=== PATIENT | female | born 1955 | race Asian ===

== ENCOUNTER 2024-08-01 10:25 | Outpatient (AMB) | payer MEDICARE, MEDICAID, SELFPAY ==
--- NOTE | 2024-08-01 10:30 | A.OFFVIS_ITS ---
Vital Signs 08/01/24 10:33 Height 5 ft 1.65 in Weight 153 lb 10.595 oz BMI 28.4 BP 130/90 H Blood Pressure Location Rt brachial Position Sitting Pulse 68 Pulse Source Pulse Oximeter Pulse Oximetry (%) 99 Oxygen Delivery Method Room Air Intake Visit Reasons: Arthalgia Intake Note: Patient presents today for Primary localized osteoarthritis of knees, bilateral. Allergies No Known Allergies Allergy (Verified 07/27/24 15:22) HPI HPI Arthalgia: Details: She received [facility] [place] [address] Parks. She received at least 3 months benefit with cortisone injection. Left knee pain is now worse than right knee pain. A month ago she developed joint pain and swelling involving her hands, wrists, feet extending to her knees. She saw a physician in [place] who started patient on methotrexate 7.5 mg once weekly, chloroquine and betamethasone 0.5 mg twice a day. She had told the physician that she was unable to take NSAIDs due to prior history of JOHNNA on diclofenac 50 mg twice a day. After treatment her pain and swelling has resolved. No reoccurrence of joint swelling. [facility] Medical History (Updated 08/01/24 @ 21:34 by Jose Miguel Alberto MD) Systemic hypertension due to high intracranial pressure Hypertension Primary localized osteoarthritis of knees, bilateral Cervicalgia Carpal tunnel syndrome Arthralgia of shoulder region Arthralgia of hand Surgical History History of right cataract surgery Family History Father No problems noted. Review of Systems Const All systems reviewed & are unremarkable except as noted in HPI and below Physical Exam Vital Signs: Last Vital Signs Pulse 68 08/01/24 10:33 BP 130/90 H 08/01/24 10:33 Pulse Ox 99 08/01/24 10:33 Oxygen Delivery Method Room Air 08/01/24 10:33 BMI result Body Mass Index 28.4 Const Other: General: Comfortable CVS: RRR Respiratory: clear to auscultation bilaterally. Good respiratory effort Skin: No lesions seen MSK: No tenderness of small joints. No synovitis. She has bony hypertrophy present on right wrists. Normal range of motion of upper extremities. Bilateral knee tenderness on palpation. Knee flexion 100 degrees right knee and left knee is 60 degrees. No MTP tenderness. Office Procedures AMB Joint Injection/Aspiration Joint Injection/Aspiration Details: Bilateral knee joints Prep: site was prepped using aseptic technique Injected into each joint: 40 mg of, Kenalog, with 1 mL of and 1% plain lidocaine Procedure: The patient tolerated the procedure well. Postprocedure protocol was discussed with patient. Coding 06924 - Bilateral Large Joint Procedure code (CPT) selection complete AMB Joint Injection/Aspiration Coding 44916 - Bilateral Large Joint Procedure code (CPT) selection complete Office Meds lidocaine (PF) 10 mg/mL (1 %) injection solution Performing Provider: Jose Miguel Alberto MD [place] [facility] Administered by: Jose Miguel Alberto MD on 08/01/24 21:25 Dose Route Admin Location Dispensed Lot Number Expiration Date [facility] [employer] 10 mg Infiltration 2 mL [id number] [employer] Kenalog 40 mg/mL suspension for injection Performing Provider: Jose Miguel Alberto MD Performing Location[place] [facility] Administered by: Jose Miguel Alberto MD on 08/01/24 21:25 Dose Route Admin Location Dispensed Lot Number Expiration Date [facility] [employer] 40 mg intra-articular 1 mL [id number] [employer] lidocaine (PF) 10 mg/mL (1 %) injection solution Performing Provider: Jose Miguel Alberto MD Performing Location: [facility] Administered by: Jose Miguel Alberto MD on 08/01/24 21:25 Dose Route Admin Location Dispensed Lot Number Expiration Date [facility] [employer] 10 mg Infiltration 2 mL [id number] [employer] Kenalog 40 mg/mL suspension for injection Performing Provider: Jose Miguel Alberto MD Performing Location: [facility] Administered by: Jose Miguel Alberto MD on 08/01/24 21:25 Dose Route Admin Location Dispensed Lot Number Expiration Date [facility] [employer] 40 mg intra-articular 1 mL [id number] [employer] Assessment & Plan Assessment & Plan (1) Rheumatoid arthritis: Comment: New diagnosis of rheumatoid arthritis in [place] a month ago presenting with polyarthritis affecting wrist, hands, knees and feet. She was placed on methotrexate 7.5 mg once weekly, chloroquine and betamethasone 0.5 mg b.i.d. she does not have synovitis on exam likely related to betamethasone as it takes at least 2-3 months for full effectiveness of DMARD therapy. She has bony hypertrophy of right wrist. I will workup for inflammatory arthritis with labs and x-rays. Code(s): M06.9 - Rheumatoid arthritis, unspecified Category: Medical Qualifiers: Rheumatoid arthritis location: multiple sites Rheumatoid factor presence: unspecified presence Qualified Code(s): M06.9 - Rheumatoid arthritis, unspecified Plan: Baseline labs ordered Bilateral hand and feet x-rays ordered Take betamethasone 0.5 mg daily until you run out. She has 2-3 days of betamethasone left from [place]. I do not recommend resuming methotrexate or chloroquine until follow up appointment where I will review results of workup with patient and her son She will call office if she has recurrence of joint pain and swelling for urgent evaluation Return to clinic in 1-2 months for results (2) Primary localized osteoarthritis of knees, bilateral: Comment: CSI b/1 04/2023, 07/2023, L 10/2023, R 11/2023. Code(s): M17.0 - Bilateral primary osteoarthritis of knee Category: Medical Plan: Patient received bilateral knee cortisone injections this visit Orders: Orders Complete Blood Count Auto Diff Today Z79.60 - intermediate manager (current) use of unspecified immunomodulators and immunosuppressants Creatinine Today Z79.60 - intermediate manager (current) use of unspecified immunomodulators and immunosuppressants Erythrocyte Sedimentation Rate Today Z79.899 - Other snf (current) drug therapy Hepatitis B,C Profile Today M06.9 - Rheumatoid arthritis, unspecified T Spot TB Today M06.9 - Rheumatoid arthritis, unspecified Rheumatoid Factor Today M06.9 - Rheumatoid arthritis, unspecified XR hand LT min 3V Today M06.9 - Rheumatoid arthritis, unspecified XR foot RT min 3V Today M06.9 - Rheumatoid arthritis, unspecified XR knee RT 2V Today M17.0 - Bilateral primary osteoarthritis of knee Alanine Aminotransferase Today Z79.60 - snf (current) use of unspecified immunomodulators and immunosuppressants Aspartate Amino Transferase Today Z79.60 - intermediate manager (current) use of unspecified immunomodulators and immunosuppressants C Reactive Protein Today Z79.899 - Other ferry terminal supervisor (current) drug therapy Cyclic Citrullinated Peptide Today M06.9 - Rheumatoid arthritis, unspecified XR hand RT min 3V Today M06.9 - Rheumatoid arthritis, unspecified XR foot LT min 3V Today M06.9 - Rheumatoid arthritis, unspecified XR knee LT 2V Today M17.0 - Bilateral primary osteoarthritis of knee AMB Joint Injection/Aspiration Today M17.0 - Bilateral primary osteoarthritis of knee AMB Joint Injection/Aspiration Today M17.0 - Bilateral primary osteoarthritis of knee Medications: New lidocaine (PF) 10 mg Infiltration ONCE 1 mL 0RF M17.0 - Bilateral primary osteoarthritis of knee lidocaine (PF) 10 mg Infiltration ONCE 1 mL 0RF M17.0 - Bilateral primary os teoarthritis of knee Kenalog (triamcinolone acetonide) 40 mg intra-articular ONCE 1 mL 0RF NS M17.0 - Bilateral primary osteoarthritis of knee Kenalog (triamcinolone acetonide) 40 mg intra-articular ONCE 1 mL 0RF NS M17.0 - Bilateral primary osteoarthritis of knee Coding Level of Care Code Est Pt Level 5 (64168) Diagnoses Rheumatoid arthritis involving multiple sites, unspecified whether rheumatoid factor present M06.9 Rheumatoid arthritis location: multiple sites Rheumatoid factor presence: unspecified presence Primary localized osteoarthritis of knees, bilateral M17.0 CPT Codes Coding - 94307 - Bilateral Large Joint: 08483 - Bilateral Large Joint ([id number]) Coding - 75812 - Bilateral Large Joint: 29650 - Bilateral Large Joint ([id number]) Time Spent (min) 40
[2024-08-01 10:33] VITALS: BP 130/90; PULSE 68; O2SAT 99; BMI 28.4
--- OUTSIDE RECORDS SUMMARY | 2024-08-01 11:49 | XMS_ITS | Data Portability ---
Author Organization [place] - [facility], Allergy Address [address] [place] [id number] Assessment Encounter Date Assessment Date Assessment LastModified by Organization Details LastModified Time 10/21/2023 10/21/2023 Left ear is demonstrating a 60% perforation, currently infected. The ear was carefully debrided today under the binocular microscope. I have sent Ciprodex drops to her pharmacy to be used twice a day for 2 weeks. Specific instructions on drop application provided. She should maintain dry ear precautions. Follow-up with PA in 1 month to ensure resolution of the infection and get audiometric testing. We did discuss the fact that she would likely be a good candidate for either surgical repair of the perforation, amplification, or continued observation based on her preferences. [email or web address] Not available 10/21/2023 11:19:49 11/17/2023 11/17/2023 Recommendations: Follow up with referring provider. [email or web address] Not available 11/17/2023 13:38:17 11/17/2023 11/17/2023 68-year-old female presents for follow-up of left-sided otorrhea. The infection has resolved. There is a stable 60% perforation of the left tympanic membrane. Right TM is intact with an aerated middle ear space. Audiometric testing demonstrated normal sloping to mild high-frequency sensorineural hearing loss on the right and moderate mixed hearing loss on the left. Recommended to continue with left-sided dry ear precautions. We discussed observation versus amplification versus tympanoplasty. Patient will consider these options and discuss with her son. She will call the office if she is interested in following up with Dr. Noble to discuss tympanoplasty or if she would like to proceed with left-sided amplification. [email or web address] Not available 11/17/2023 14:29:20 Plan of Treatment Reminders Order Date Submit Date Provider Last Modified By Organization Details Last Modified Time Details Appointments None recorded. Lab None recorded. Referral None recorded. Procedures None recorded. Surgeries None recorded. Imaging None recorded. Medication Orders ciprofloxac in 0.3 %-dexametha sone 0.1 % ear drops,suspe nsion 2023 024 [facility], [address] [place] [address], [id number], 11:14:47 Patient TargetsNo targets recorded. Patient InstructionsNo instructions recorded. Reason for Referral None Reported. Results Created Date Observation Date Name Description Value Unit Range Abnormal Flag Note LastModifiedBy Organization Detail LastModifiedTime 11/21/19 24 audio gram No observ ation record ed. [email or web address] Not Available 10/24 09:22:22 Result Notes None recorded. Problems Name Problem SNOMED Code Status Onset Date Resolution Date Notes Provider Name and Address Organization Details Recorded Time Perforation of left tympanic membrane 8102161148393 103 Active 2023 AKIL NOBLE MD [address] [address], [facility] [place], [address], [facility] - [facility] 4 11:13:27 Otorrhea of left ear 9325470264899 108 Active 2023 AKIL NOBLE MD [address] [address], [facility] [place], [address], [facility] - [facility] 4 11:13:37 Sensorineur al hearing loss 81143759 Active 2023 JAIME ANDRE [address] [address], [facility] [place], [address], [place] [facility] 4 13:38:57 Mixed conductive AND sensorineur al hearing loss 91544646 Active 2023 JAIME ANDRE [address] [address], [facility] [place], [address], [place] [facility] 4 13:41:49 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 Procedures Surgical History Date Name Laterality Status Provider Name and Address Organization Details Recorded Time Comp Audio with Tymps (26996 & 95259) completed JAIME ANDRE [address] [facility],[address], [address], [facility] 11/17/2023 13:38:50 EAC debris removal with microscope completed AKIL NOBLE MD [address] [facility],[address], [address], [facility] 10/21/2023 11:13:14 Imaging Results Imaging Date Name Status LastModified by Organiz ation Details LastModified Time 11/21/2023 audiogram completed [email or web address] Information n ot available 11/21/2023 09:22:22 Procedure Notes None recorded. Medical Equipment None Reported. Medications Name Sig Start Date Stop Date Status Note LastModified by Organization Details LastModified Time atorvastatin 80 mg tablet active Not Available Not Available No t Available amlodipine 5 mg tablet active Not Available Not Available Not Available ketorolac 0.5 % eye drops active Not Available Not Available No t Available prednisolone acetate 1 % eye drops,suspensio n active Not Available Not Available Not Available amlodipine 10 mg tablet active Not Available Not Available No t Available pantoprazole 40 mg tablet,delayed release active Not Available Not Available Not Available losartan 25 mg tablet active Not Available Not Available Not Available ciprofloxacin 0.3 %-dexamethasone 0.1 % ear drops,suspensio n Instill 4 drops twice a day by otic route for 14 days. active Not Available Not Available No t Available diclofenac 1 % topical gel active Not Available Not Available Not Available Vitals Date Recorded Body height Provider Name an d Address Organization Details Last Updated DateTime 10/21/2023 160.02 cm Lulu Mathews [place] [facility] 10/21/2023 11:02:59 Date Recorded Body height Body mass index (BMI) Body weight Provider Name and Address Organization Details Last Updated DateTime 11/17/2023 160.02 cm 31.9 kg/m2 37280.63 g Kong Omalley [place] - [facility] 11/17/2023 13:08:06 Social History None recorded. Functional Status None recorded. Mental Status None recorded. Family History Nothing Reported. Medical History No medical history recorded. Gynecological HistoryNo gynecological history recorded. Obstetrics History GPAL:G 0 P 0 0 0 0 Past Encounters Encounter ID Performer Location Encounter Start Date Encounter Closed Date Diagnosis/Indication Diagnosis SNOMED-CT Code Diagnosis ICD10 Code Diagnosis Note [id number] AKIL NOBLE MD [facility] [address] [address] 10/21/2023 09:52:23 10/21/2023 11:18:46 Perforation of left tympanic membrane 1918827272 021080 H72.92 Otorrhea of left ear 305 4873141 607764 H92.12 [id number] AKIL NOBLE MD [facility] [address] [address] 11/17/2023 12:33:54 11/17/2023 14:17:30 Otorrhea of left ear 5780696043 580595 H92.12 Perforatio n of left tympanic membrane 3101008688 472327 H72.02 Mixed cond uctive and sensorineural hearing loss of left ear 1007357485 9107 H90.A32 Sensorineu ral hearing loss in right ear 9764187067 9100 H90.A21 [id number] JAIME ANDRE [facility] [address] [address] 11/17/2023 13:38:05 11/22/2023 09:08:20 Sensorineural hearing loss 40843480 H90.A21 Mixed cond uctive AND sensorineural hearing loss 41541657 H90.A32 Audiologic al evaluation results: Right ear: {{Normal sloping* M ild Modera te Moderat tiffanie-severe Severe Pr ofound Nor mal auditory thresholds }} to {{mild* mo derate mod erately-se flaquita sever e profound with}} {{sensorin eural hearing loss with* cond uctive hearing loss with mixed hearing loss with}} {{excellen t* good fa ir poor no t measurable }} word recognitio n. Left ear: {{Normal sloping Mi ld Moderat e* Moderat tiffanie-severe Severe Pr ofound Nor mal auditory thresholds }} {{sensorin eural hearing loss with condu ctive hearing loss with mixed hearing loss with*}} {{excellen t* good fa ir poor no t measurable }} word recognitio n. Tympanomet ry: Right Ear:{{Type A Type As Type Ad* Type C Type C, shallow & rounded Ty pe B Type B with large volume Cou ld not maintain a hermetic seal}} Left Ear:{{Type A Type As Type Ad Type C Type C, shallow & rounded Ty pe B Type B with large volume* Co uld not maintain a hermetic seal}} Health Concerns Section Related Observation LastModified by Organization Detai ls LastModified Time None Recorded Concern Status LastModified by Organization Details LastModified Time None Recorded Advance Directives Directive None Recorded Payers Encounter Date Sequence Insurance Name Policy Number Policy Monique Covered Member ID Monique Member ID Guarantor Name 10/21/2023 1 [place] [employer] Samer Madrigal [id number] Samer Madrigal 10/21/2023 2 [place] Samer Madrigal [id number] Samer Madrigal 11/17/2023 1 [place] [employer] Samer Madrigal [id number] Samer Madrigal 11/17/2023 2 [place] Samer Madrigal [id number] Samer Madrigal 11/17/2023 1 [place] [employer] Samer Madrigal [id number] Samer Madrigal 11/17/2023 2 [place] Samer Madrigal [id number] Enrique Madrigal Notes Date Note Type Note Provider Name and Address Organization Details Recorded Time 10/21/2023 text/html 68-year-old ryan fabian who comes in today for evaluation of the left ear. Today's visit carried out using a video BIOSAFE access rn. 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 She has noticed long-term hearing loss as a result. She began noticing left-sided ear pain and otorrhea a few days ago. This has not been a recurring issue for her in the past AKIL NOBLE MD [address] [facility],[address], [address], [place] - [facility] 10/21/2023 11:19:59 11/17/2023 text/html 68-year-old ryan fabian presents for follow-up of left ear infection. Exam at the previous visit noted 60% perforation with otorrhea on the left. She was started on Ciprodex. Denies otalgia and otorrhea. Continues to have difficulty hearing. AKIL NOBLE MD [address] [facility],[address], [address], [place] - [facility] 11/17/2023 17:02:51 11/17/2023 text/html Audiological Evaluation HPIReported bypatient.Hearing loss perceived:both ears: left ear worse; Perf, . JAIME ANDRE [address] [facility],[address], [address], [place] - [facility] 11/17/2023 13:45:27 OBGyn Episode No OBEpisode recorded.
== END 2024-08-01 11:37 | disposition home or self-care (01) ==
PROVIDERS: PCP Internal Medicine; Visit Provider Internal Medicine Rheumatology
DX: M06.9 Rheumatoid arthritis, unspecified (principal); M17.0 Bilateral primary osteoarthritis of knee
CPT/HCPCS: 20610; 99215

== ENCOUNTER → 2024-08-01 10:25 | Outpatient (BNVA) | payer MEDICARE, MEDICAID, SELFPAY | PROVIDERS: PCP Internal Medicine; Visit Provider Internal Medicine Rheumatology | DX: M17.0 Bilateral primary osteoarthritis of knee (principal); M06.9 Rheumatoid arthritis, unspecified | CPT/HCPCS: 20610; 99212; J2003; J3300 ==

== ENCOUNTER 2024-08-14 14:58 | Outpatient (REF) | payer MEDICARE, MEDICAID, SELFPAY ==
--- NOTE | ~2024-08-14 | XR_ITS ---
CLINICAL HISTORY: M06.9 - Rheumatoid arthritis, unspecified 3 views right hand Comparison: None Findings: There is no fracture or dislocation. There is severe osteoarthritis of the 1st carpometacarpal joint and triscaphe joint in the wrist. There is mild osteoarthritis in distal interphalangeal joints. There is no bone erosion. Impression: 1. No findings of rheumatoid arthritis. 2. Osteoarthritis as above. This document has been electronically signed by: Gunner Watson MD on 08/16/2024 05:09:52
--- NOTE | ~2024-08-14 | XR_ITS ---
CLINICAL HISTORY: M06.9 - Rheumatoid arthritis, unspecified 3 views left foot Comparison: None Findings: There is no fracture or dislocation. Joint spaces are preserved. There is no bone erosion. There are calcaneal enthesophytes. Impression: No findings of rheumatoid arthritis. This document has been electronically signed by: Gunner Watson MD on 08/16/2024 05:07:41
--- NOTE | ~2024-08-14 | XR_ITS ---
CLINICAL HISTORY: M17.0 - Bilateral primary osteoarthritis of knee 2 views left knee Comparison: None Findings: There is no fracture or dislocation. There is severe tricompartmental osteoarthritis. There is no effusion. Ossific densities projecting over the suprapatellar recess and posterior joint space are likely loose bodies. Impression: Severe tricompartmental osteoarthritis. This document has been electronically signed by: Gunner Watson MD on 08/16/2024 05:06:54
--- NOTE | ~2024-08-14 | XR_ITS ---
CLINICAL HISTORY: M06.9 - Rheumatoid arthritis, unspecified 3 views left hand Comparison: None Findings: There is no fracture or dislocation. There is severe osteoarthritis of the 1st carpometacarpal joint and triscaphe joint in the wrist. Joint spaces are otherwise preserved. There is no bone erosion. Impression: 1. No findings of rheumatoid arthritis. 2. Osteoarthritis as above. This document has been electronically signed by: Gunner Watson MD on 08/16/2024 05:13:41
--- NOTE | ~2024-08-14 | XR_ITS ---
CLINICAL HISTORY: M17.0 - Bilateral primary osteoarthritis of knee 2 views right knee Comparison: None Findings: There is no fracture or dislocation. There is moderate medial and patellofemoral compartment osteoarthritis. There is no effusion. Impression: Moderate medial and patellofemoral compartment osteoarthritis. This document has been electronically signed by: Gunner Watson MD on 08/16/2024 05:06:33
--- NOTE | ~2024-08-14 | XR_ITS ---
CLINICAL HISTORY: M06.9 - Rheumatoid arthritis, unspecified 3 views right foot Comparison: None Findings: There is no fracture or dislocation. There is mild hallux valgus. Joint spaces are preserved. There is no bone erosion. There are calcaneal enthesophytes and heterotopic ossification in the region of the distal Achilles tendon. Impression: No findings of rheumatoid arthritis. This document has been electronically signed by: Gunner Watson MD on 08/16/2024 05:07:12
[2024-08-14 16:12] LABS: MANUAL DIFF FLAG NO
[2024-08-14 16:26] LABS: Basophils Percent Auto 0.3 % (0-2); Eosinophils Absolute Auto 0.2 X10*3/uL (0.0-0.4); Eosinophils Percent Auto 1.7 % (0-4); Hematocrit 39.3 % (37.0-47.0); Hemoglobin 12.4 g/dl (12.0-16.0); Imm Gran Abs Auto 0.02 X10*3/uL (0.00-0.03); Imm Gran Pct Auto 0.2 % (0.0-0.4); Lymphocytes Absolute Auto 2.2 X10*3/uL (1.2-4.9); Lymphocytes Percent Auto 24.9 % (20-40); Mean Corpuscular HGB Conc 31.6 g/dl (31.0-35.0); Mean Corpuscular Hemoglobin 25.3 pg (27.0-33.0); Mean Platelet Volume 12.4 fL (9.4-12.3); Monocytes Absolute Auto 0.6 X10*3/uL (0.1-1.2); Monocytes Percent Auto 6.7 % (2-11); Neutrophils Absolute Auto 5.9 x10*3/uL (2.0-8.3); Neutrophils Percent Auto 66.2 % (45-73); Platelet Count 305 X10*3/uL (160-400); Red Blood Count 4.91 X10*6/uL (4.20-5.50); Red Cell Distribution Width 16.3 % (11.0-16.0); White Blood Count 8.9 X10*3/uL (4.8-10.8)
[2024-08-14 16:34] LABS: Rheumatoid Factor < 13.0 IU/mL (<15.0)
[2024-08-14 16:44] LABS: Alanine Aminotransferase 19 U/L (0-31); Aspartate Amino Transferase 18 U/L (5-31); Estimated Glomerular Filt Rate 51
[2024-08-14 17:02] LABS: Erythrocyte Sedimentation Rate 31 MM/HR (0-20)
[2024-08-15 08:45] LABS: HBS Num1 1.95 mIU/mL (0-7.99); HBc Num1 0.04 S/CO (0.00-0.79); HBsAGNum1 0.28 S/CO (0.00-0.99); Hepatitis B Core Antibody Nonreactive (Nonreactive); Hepatitis B Surface Antigen Negative (Negative); ~HepC Num1 0.07 S/CO (0.00-0.79); ~Hepatitis B Surface Antibody NONREACTIVE (Nonreactive); ~Hepatitis C Antibody Nonreactive (Nonreactive)
[2024-08-16 11:39] LABS: Cyclic Citrullinated Peptide <16 UNITS
== END 2024-08-14 14:59 | disposition home or self-care (01) ==
LOC: HO.HMGCX 14:58
PROVIDERS: Visit Provider Internal Medicine Rheumatology
DX: M06.9 Rheumatoid arthritis, unspecified (principal); M17.0 Bilateral primary osteoarthritis of knee; Z79.60 Long term (current) use of unspecified immunomodulators and immunosuppressants; Z79.899 Other long term (current) drug therapy
CPT/HCPCS: 36415; 73130; 73560; 73630; 82565; 84450; 84460; 85025; 85652; 86140; 86200; 86431; 86704; 86706; 86803; 87340

== ENCOUNTER → 2024-08-14 15:07 | Outpatient (BNV) | payer MEDICARE, MEDICAID, SELFPAY | PROVIDERS: Visit Provider Radiology Diagnostic Radiology | DX: M19.042 Primary osteoarthritis, left hand (principal); M19.041 Primary osteoarthritis, right hand; M19.071 Primary osteoarthritis, right ankle and foot; M19.072 Primary osteoarthritis, left ankle and foot; M17.0 Bilateral primary osteoarthritis of knee | CPT/HCPCS: 73130; 73560; 73630 ==

== ENCOUNTER 2024-08-15 09:51 | Outpatient (REF) | payer MEDICARE, MEDICAID, SELFPAY ==
--- OUTSIDE RECORDS SUMMARY | 2024-08-15 11:17 | XMS_ITS | Data Portability ---
Author Organization [place] - [facility], Allergy Address [address] [place] [address] Assessment Encounter Date Assessment Date Assessment LastModified [...] or continued observation based on her preferences. Not available 10/21/2023 11:19:49 11/17/2023 11/17/2023 Recommendations: [...] would like to proceed with left-sided amplification. [email or web address] Not available 11/17/2023 14:29:20 Plan of Treatment Reminders Order Date Submit Date Provider Last Modified By Organization Details Last Modified Time Details Appointments None recorded. Lab None recorded. Referral None recorded. Procedures None recorded. Surgeries None recorded. Imaging None recorded. Medication Orders ciprofloxac in 0.3 %-dexametha sone 0.1 % ear drops,suspe nsion 2023 024 [facility], [address] [place] [address], [address], 11:14:47 Patient TargetsNo targets recorded. Patient InstructionsNo instructions recorded. Reason for Referral None Reported. Results Created Date Observation Date Name Description Value Unit Range Abnormal Flag Note LastModifiedBy Organization Detail LastModifiedTime 11/21/19 24 audio gram No observ ation record ed. [email or web address] Not Available 10/24 09:22:22 Result Notes None recorded. Problems Name Problem SNOMED Code Status Onset Date Resolution Date Notes Provider Name and Address Organization Details Recorded Time Perforation of left tympanic membrane 0138159076307 103 Active 2023 AKIL NOBLE MD [address] [address], [facility] [place], [address], [facility] - [facility] 4 11:13:27 Otorrhea of left ear 7640077054669 108 Active 2023 AKIL NOBLE MD [address] [address], [place], [address], [facility] - [facility] 4 11:13:37 Sensorineur al hearing loss 69699280 Active 2023 JAIME ANDRE [address] [address], [place], [address], [place] - [facility] [place] 4 13:38:57 Mixed conductive AND sensorineur al hearing loss 23439178 Active 2023 JAIME ANDRE [address] [address], [facility] [place], [address], [place] [facility] 4 13:41:49 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 Procedures Surgical History Date Name Laterality Status Provider Name and Address Organization Details Recorded Time Comp Audio with Tymps (64971 & 74219) completed JAIME ANDRE 100 [facility],[address], [address], [facility] 11/17/2023 13:38:50 EAC debris removal with microscope completed AKIL NOBLE MD 100 [facility],[address], [address], [facility] 10/21/2023 11:13:14 Imaging Results Imaging Date Name Status LastModified by Organiz ation Details LastModified Time 11/21/2023 audiogram completed [email or web address] Information n ot available 11/21/2023 09:22:22 Procedure [...] Updated DateTime 10/21/2023 160.02 cm Lulu Mathews [place] - [facility] 10/21/2023 11:02:59 Date Recorded Body height Body mass index (BMI) Body weight Provider Name and Address Organization Details Last Updated DateTime 11/17/2023 160.02 cm 31.9 kg/m2 86206.63 g Kong Omalley [place] - [facility] 11/17/2023 13:08:06 Social History None recorded. Functional [...] Note [id number] AKIL NOBLE MD [facility] [address] [address] 10/21/2023 09:52:23 10/21/2023 11:18:46 Perforation of left tympanic membrane 1914478632 469543 H72.92 Otorrhea of left ear 469 1500852 833267 H92.12 [id number] AKIL NOBLE MD [facility] [address] [address] 11/17/2023 12:33:54 11/17/2023 14:17:30 Otorrhea of left ear 1458302783 694118 H92.12 Perforatio n of left tympanic membrane 2852213056 559107 H72.02 Mixed cond uctive and sensorineural hearing loss of left ear 2577911968 9107 H90.A32 Sensorineu ral hearing loss in right ear 1911217360 9100 H90.A21 9546 JAIME ANDRE [facility] [address] [address] 11/17/2023 13:38:05 11/22/2023 09:08:20 Sensorineural hearing loss 14053547 H90.A21 Mixed cond uctive AND sensorineural hearing loss 66355044 H90.A32 Audiologic al evaluation results: Right ear: [...] [place] Samer Madrigal [id number] Samer Madrigal 10/21/2023 2 [place] Samer Madrigal [id number] Samer Madrigal 11/17/2023 1 [place] Samer Madrigal [id number] Samer Madrigal 11/17/2023 2 [place] Samer Madrigal [id number] Samer Madrigal 11/17/2023 1 [place] Samer Madrigal [id number] Samer Madrigal 11/17/2023 2 [place] Samer Madrigal [id number] Enrique Madrigal Notes Date Note Type Note Provider Name and Address Organization Details Recorded Time 10/21/2023 text/html 68-year-old ryan fabian who comes in today for evaluation of the left ear. 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 She has noticed long-term hearing loss as a result. She began noticing left-sided ear pain and otorrhea a few days ago. This has not been a recurring issue for her in the past AKIL NOBLE MD 100 [facility],[address], [address], [place] - [facility] 10/21/2023 11:19:59 11/17/2023 text/html 68-year-old ryan fabian presents for follow-up of left ear infection. Exam at the previous visit noted 60% perforation with otorrhea on the left. She was started on Ciprodex. Denies otalgia and otorrhea. Continues to have difficulty hearing. AKIL NOBLE MD 100 [facility],[address], [address], [place] - [facility] 11/17/2023 17:02:51 11/17/2023 text/html Audiological Evaluation HPIReported bypatient.Hearing loss perceived:both ears: left ear worse; Perf, . JAIME ANDRE 100 [facility],[address], [address], [place] - [facility] 11/17/2023 13:45:27 OBGyn Episode No OBEpisode recorded.
[2024-08-17 22:29] LABS: TS Negative Control Passed; TS Panel A 1; TS Panel B 0; TS Positive Control Passed; TSpotTB Negative (Negative)
== END 2024-08-15 09:52 | disposition home or self-care (01) ==
LOC: HO.HMGCLDS 09:51
PROVIDERS: Visit Provider Internal Medicine Rheumatology
DX: M06.9 Rheumatoid arthritis, unspecified (principal); Z11.1 Encounter for screening for respiratory tuberculosis
CPT/HCPCS: 36415; 86481

== ENCOUNTER 2024-08-23 08:26 | Outpatient (REF) | payer MEDICARE, MEDICAID, SELFPAY ==
[2024-08-23 18:02] LABS: C Reactive Protein 0.21 mg/dL (< or = 0.50)
[2024-08-23 18:51] LABS: Erythrocyte Sedimentation Rate 29 MM/HR (0-20)
== END 2024-08-23 08:27 | disposition home or self-care (01) ==
LOC: HO.HKASLDS 08:26
PROVIDERS: PCP Internal Medicine; Visit Provider Internal Medicine Rheumatology
DX: M06.9 Rheumatoid arthritis, unspecified (principal); M77.02 Medial epicondylitis, left elbow; M17.0 Bilateral primary osteoarthritis of knee
CPT/HCPCS: 36415; 85652; 86140; 99212

== ENCOUNTER 2024-08-23 08:26 | Outpatient (AMB) | payer MEDICARE, MEDICAID, SELFPAY ==
[2024-08-23 08:28] VITALS: BP 138/90; PULSE 64; O2SAT 99; BMI 29.3
--- NOTE | 2024-08-23 08:28 | A.OFFVIS_ITS ---
Vital Signs 08/23/24 08:28 Height 5 ft 1 in Weight 155 lb BMI 29.3 BP 138/90 H Blood Pressure Location Rt brachial Position Sitting Pulse 64 Pulse Source Pulse Oximeter Pulse Oximetry (%) 99 Oxygen Delivery Method Room Air Intake Visit Reasons: 08/23 Intake Note: Patient presents follow up Primary localized osteoarthritis of knees, bilateral Allergies No Known Allergies Allergy (Verified 08/23/24 08:33) HPI HPI 08/23: Details: 20% relief with cortisone injection. She is able to move better. She has developed pain in her wrists, 2nd and 3rd fingers bilateral hands and left elbow. She is also having pain in her feet when she walks. No joint swelling. She is having pain in her elbow exacerbated with activity such as cooking and cleaning. [facility] Medical History Systemic hypertension due to high intracranial pressure Hypertension Primary localized osteoarthritis of knees, bilateral Cervicalgia Carpal tunnel syndrome Arthralgia of shoulder region Arthralgia of hand Surgical History History of right cataract surgery Family History Father No problems noted. Physical Exam Vital Signs: Last Vital Signs Pulse 64 08/23/24 08:28 BP 138/90 H 08/23/24 08:28 Pulse Ox 99 08/23/24 08:28 Oxygen Delivery Method Room Air 08/23/24 08:28 BMI result Body Mass Index 29.3 Const Other: General: Comfortable CVS: RRR Respiratory: clear to auscultation bilaterally. Good respiratory effort Skin: No lesions seen MSK: . Squaring of CMCs bilateral with tenderness. Tender to palpate 2nd and 3rd MCP bilateral. Right wrists tenderness. Right 3rd PIP mild synovitis. Tender to palpate left medial epicondyle with pain with resisted wrist flexion. Normal range of motion of upper extremity. Tender bilateral knees with hypertrophy present and crepitus. Knee flexion 90 degrees bilateral. Hallux valgus bilateral present with tenderness on palpation. Slight tenderness of 2nd and 3rd MTPs. Assessment & Plan Assessment & Plan (1) Rheumatoid arthritis: Comment: Off of betamethasone she has developed tender small joints in hands and feet with mild R 3rd PIP swelling. She has clinical osteoarthritis in hands and feet supported with x-ray findings. Rheumatology history: New diagnosis of rheumatoid arthritis in [place] a month ago presenting with polyarthritis affecting wrist, hands, knees and feet. She was placed on methotrexate 7.5 mg once weekly, chloroquine and betamethasone 0.5 mg b.i.d. 07/2024 visit she does not have synovitis on exam likely related to betamethasone use and it being too soon on DMARD therapy for full effectiveness (1 month duration). [facility] workup revealed negative rheumatoid factor, anti CCP antibody, hepatitis screen, elevated ESR 31 mm/hr normal CRP. In [place] on her anti CCP antibody was elevated low titre 32.5 (N<17 U/mL). Code(s): M06.9 - Rheumatoid arthritis, unspecified Category: Medical Qualifiers: Rheumatoid arthritis location: multiple sites Rheumatoid factor presence: unspecified presence Qualified Code(s): M06.9 - Rheumatoid arthritis, unspecified Plan: MRI right hand with and without contrast to evaluate for inflammatory arthritis as it will tire changer with addition of DMARD therapy Inflammatory markers ordered Return to clinic in 1 month for Euflexxa (2) Medial epicondylitis, left elbow: Code(s): M77.02 - Medial epicondylitis, left elbow Category: Medical Plan: Elbow support band prescribed PT ordered Return to clinic in 3 months (3) Primary localized osteoarthritis of knees, bilateral: Comment: CSI b/1 04/2023, 07/2023, 07/2024, L 10/2023, R 11/2023. She had partial relief with cortisone injections to bilateral knees. We discussed next steps with Euflexxa. Patient agrees with plan. Code(s): M17.0 - Bilateral primary osteoarthritis of knee Category: Medical Plan: Bilateral Euflexxa PA Return to clinic in 1 month for Euflexxa Orders: Orders Erythrocyte Sedimentation Rate Today M06.9 - Rheumatoid arthritis, unspecified C Reactive Protein Today M06.9 - Rheumatoid arthritis, unspecified MR hand RT wo/w con Today M06.9 - Rheumatoid arthritis, unspecified PT Evaluation and Treatment Today M77.02 - Medial epicondylitis, left elbow Medications: New arm brace As directed left elbow support band Dx: medial epicondylitis 1 ea 0RF Coding Level of Care Code Est Pt Level 4 (54376) Complex EM visit Add On G2211 Diagnoses Rheumatoid arthritis involving multiple sites, unspecified whether rheumatoid factor present M06.9 Rheumatoid arthritis location: multiple sites Rheumatoid factor presence: unspecified presence Medial epicondylitis, left elbow M77.02 Primary localized osteoarthritis of knees, bilateral M17.0
--- OUTSIDE RECORDS SUMMARY | 2024-08-23 08:42 | XMS_ITS | Data Portability ---
Author Organization [place] - [facility], Allergy Address [address] [place] [address] Assessment Encounter Date Assessment Date Assessment LastModified [...] or continued observation based on her preferences. [email or web address] Not available 10/21/2023 11:19:49 11/17/2023 11/17/2023 Recommendations: [...] would like to proceed with left-sided amplification. [email or web address] Not available 11/17/2023 14:29:20 Plan of Treatment Reminders Order Date Submit Date Provider Last Modified By Organization Details Last Modified Time Details Appointments None recorded. Lab None recorded. Referral None recorded. Procedures None recorded. Surgeries None recorded. Imaging None recorded. Medication Orders ciprofloxac in 0.3 %-dexametha sone 0.1 % ear drops,suspe nsion 2023 024 [facility], [address] [place] [address], [address], 11:14:47 Patient TargetsNo targets recorded. Patient InstructionsNo instructions recorded. Reason for Referral None Reported. Results Created Date Observation Date Name Description Value Unit Range Abnormal Flag Note LastModifiedBy Organization Detail LastModifiedTime 11/21/19 24 audio gram No observ ation record ed. [email or web address] Not Available 10/24 09:22:22 Result Notes None recorded. Problems Name Problem SNOMED Code Status Onset Date Resolution Date Notes Provider Name and Address Organization Details Recorded Time Perforation of left tympanic membrane 0666984088211 103 Active 2023 AKIL NOBLE MD [address] [address], [facility] [place], [address], [facility] - [facility] 4 11:13:27 Otorrhea of left ear 5022583184620 108 Active 2023 AKIL NOBLE MD [address] [address], [place], [address], [facility] - [facility] 4 11:13:37 Sensorineur al hearing loss 31857525 Active 2023 JAIME ANDRE [address] [address], [place], [address], [place] - [facility] [place] 4 13:38:57 Mixed conductive AND sensorineur al hearing loss 47744888 Active 2023 JAIME ANDRE [address] [address], [facility] [place], [address], [place] - [facility] 4 13:41:49 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 Procedures Surgical History Date Name Laterality Status Provider Name and Address Organization Details Recorded Time Comp Audio with Tymps (49808 & 477[address]) completed JAIME ANDRE 100 [facility],[address], [address], [facility] 11/17/2023 13:38:50 EAC debris removal with microscope completed AKIL NOBLE MD 100 [facility],[address], [address], [facility] 10/21/2023 11:13:14 Imaging Results Imaging Date Name Status LastModified by Organiz ation Details LastModified Time 11/21/2023 audiogram completed [email or web address] Information n ot available 11/21/2023 09:22:22 Procedure [...] Updated DateTime 10/21/2023 160.02 cm Lulu Mathews [place] - [facility] 10/21/2023 11:02:59 Date Recorded Body height Body mass index (BMI) Body weight Provider Name and Address Organization Details Last Updated DateTime 11/17/2023 160.02 cm 31.9 kg/m2 [address].63 g Kong Omalley [place] - [facility] 11/17/2023 13:08:06 Social History None recorded. 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 2575407271 9107 H90.A32 Sensorineu ral hearing loss in right ear 6789436989 9100 H90.A21 9546 JAIME ANDRE [facility] [address] [address] 11/17/2023 13:38:05 11/22/2023 09:08:20 Sensorineural hearing loss 06219108 H90.A21 Mixed cond uctive AND sensorineural hearing loss 94317249 H90.A32 Audiologic al evaluation results: Right ear: [...] [place] Samer Madrigal [id number] [facility] 10/21/2023 2 [place] Samer Madrigal [id number] Samer Madrigal 11/17/2023 1 [place] Samer Madrigal [id number] Samer Madrigal 11/17/2023 2 [place] Samer Madrigal [id number] Samer Madrigal 11/17/2023 1 [place] Samer Madrigal [id number] Samer Madrigal 11/17/2023 2 [place] Samer Madrigal [id number] Enrique Madrigal Notes Date Note Type Note Provider Name and Address Organization Details Recorded Time 10/21/2023 text/html 68-year-old ryan fabian who comes in today for evaluation of the left ear. 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 She has noticed long-term hearing loss as a result. She began noticing left-sided ear pain and otorrhea a few days ago. This has not been a recurring issue for her in the past AKIL NOBLE MD 100 [facility],[address], [address], [place] - [facility] 10/21/2023 11:19:59 11/17/2023 text/html 68-year-old ryan fabian presents for follow-up of left ear infection. Exam at the previous visit noted 60% perforation with otorrhea on the left. She was started on Ciprodex. Denies otalgia and otorrhea. Continues to have difficulty hearing. AKIL NOBLE MD 100 [facility],[address], [address], [place] - [facility] 11/17/2023 17:02:51 11/17/2023 text/html Audiological Evaluation HPIReported bypatient.Hearing loss perceived:both ears: left ear worse; Perf, . JAIME ANDRE 100 [facility],[address], [address], [place] - [facility] 11/17/2023 13:45:27 OBGyn Episode No OBEpisode recorded.
== END 2024-08-23 09:17 | disposition home or self-care (01) ==
PROVIDERS: PCP Internal Medicine; Visit Provider Internal Medicine Rheumatology
DX: M06.9 Rheumatoid arthritis, unspecified (principal); M77.02 Medial epicondylitis, left elbow; M17.0 Bilateral primary osteoarthritis of knee
CPT/HCPCS: 99214; G2211

== ENCOUNTER 2024-09-20 14:26 | Outpatient (AMB) | payer MEDICARE, MEDICAID, SELFPAY ==
--- OUTSIDE RECORDS SUMMARY | 2024-09-20 14:34 | XMS_ITS | Data Portability ---
Author Organization [place] - [facility], Allergy Address [address] [place] [phone] Assessment Encounter Date Assessment Date Assessment LastModified [...] would like to proceed with left-sided amplification. [email or web address] Not available 11/17/2023 14:29:20 Plan of Treatment Reminders Order Date Submit Date Provider Last Modified By Organization Details Last Modified Time Details Appointments None recorded. Lab None recorded. Referral None recorded. Procedures None recorded. Surgeries None recorded. Imaging None recorded. Medication Orders ciprofloxac in 0.3 %-dexametha sone 0.1 % ear drops,suspe nsion 2023 024 [facility], [address] [place] [address], [address], 11:14:47 Patient TargetsNo targets recorded. Patient InstructionsNo instructions recorded. Reason for Referral None Reported. Results Created Date Observation Date Name Description Value Unit Range Abnormal Flag Note LastModifiedBy Organization Detail LastModifiedTime 11/21/19 24 audio gram No observ ation record ed. [email or web address] Not Available 10/24 09:22:22 Result Notes None recorded. Problems Name Problem SNOMED Code Status Onset Date Resolution Date Notes Provider Name and Address Organization Details Recorded Time Perforation of left tympanic membrane 5052266982687 103 Active 2023 AKIL NOBLE MD [address] [address], [place], [address], [facility] - [facility] 4 11:13:27 Otorrhea of left ear 5373885967371 108 Active 2023 AKIL NOBLE MD [address] [address], [place], [address], 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 - [facility] 4 14:28:59 Sensorineur al hearing loss in right ear 7605151093443 0 Active 2023 ENRIQUE EDMONDS PA-C [address] [facility],[address] [address], [place], [address], [facility] - [facility] [place] 4 14:29:14 Problem Notes None recorded. Procedures Surgical History Date Name Laterality Status Provider Name and Address Organization Details Recorded Time Comp Audio with Tymps - 37647 & 90870 completed JAIME ANDRE 100 [facility],[address], [address], [facility] 11/17/2023 13:38:50 EAC debris removal with microscope completed AKIL NOBLE MD [address] [facility],[address], [address], [facility] - [facility] 10/21/2023 11:13:14 Imaging Results None recorded. Procedure Notes None recorded. Medical Equipment None [...] Updated DateTime 10/21/2023 160.02 cm Lulu Mathews [place] - [facility] 10/21/2023 11:02:59 Date Recorded Body height Body mass index (BMI) Body weight Provider Name and Address Organization Details Last Updated DateTime 11/17/2023 160.02 cm 31.9 kg/m2 93472.63 g Kong Shahram [place] - [facility] 11/17/2023 13:08:06 Social History None recorded. 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 Left ear: Moderate mixed hearing loss with excellent word recognitio n. Tympanomet ry: Right Ear:Type Ad Left Ear:Type B with large volume Health Concerns Section Related Observation LastModified by Organization Detai ls LastModified Time None Recorded Concern Status LastModified by Organization Details LastModified Time None Recorded Advance Directives Directive None Recorded Payers Insurance Date Sequence Insurance Name Policy Number Policy Monique Covered Member ID Monique Member ID Guarantor Name 11/17/2023 1 [place] [employer] Samer Madrigal [id number] Samer Madrigal 12/13/2023 2 [place] [facility] Samer Madrigal [id number] Samer Madrigal Notes Date Note Type Note Provider Name and Address Organization Details Recorded Time 10/21/2023 text/html 68-year-old ryan fabian who comes in today for evaluation of the left ear. 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 She has noticed long-term hearing loss as a result. She began noticing left-sided ear pain and otorrhea a few days ago. This has not been a recurring issue for her in the past AKIL NOBLE MD [address] [facility],[address], [address], [place] - [facility] 10/21/2023 11:19:59 11/17/2023 text/html 68-year-old ryan fabian presents for follow-up of left ear infection. Exam at the previous visit noted 60% perforation with otorrhea on the left. She was started on Ciprodex. Denies otalgia and otorrhea. Continues to have difficulty hearing. AKIL NOBLE MD [address] [facility],[address], [address], [place] - [facility] 11/17/2023 17:02:51 11/17/2023 text/html Audiological Evaluation HPIReported bypatient.Hearing loss perceived:both ears: left ear worse; Perf, . UMER KENT, JAIME [address] [facility],[address], [address], [place] - [facility] 11/17/2023 13:45:27 OBGyn Episode No OBEpisode recorded.
--- NOTE | 2024-09-20 14:37 | A.OFFVIS_ITS ---
Vital Signs 09/20/24 14:38 Height 5 ft 1 in BP 160/80 H Blood Pressure Location Lt brachial Position Sitting Pulse 69 Pulse Source Pulse Oximeter Pulse Oximetry (%) 97 Oxygen Delivery Method Room Air Intake Visit Reasons: eufflexa injections / Per MD Intake Note: euflexxa injection Allergies No Known Allergies Allergy (Verified 09/20/24 14:37) HPI HPI eufflexa injections / Per MD: Details: She had 40% benefit in reduction in pain with cortisone injections. PFSH Medical History Systemic hypertension due to high intracranial pressure Hypertension Primary localized osteoarthritis of knees, bilateral Cervicalgia Carpal tunnel syndrome Arthralgia of shoulder region Arthralgia of hand Surgical History History of right cataract surgery Family History Father No problems noted. Physical Exam Vital Signs: Last Vital Signs Pulse 69 09/20/24 14:38 BP 160/80 H 09/20/24 14:38 Pulse Ox 97 09/20/24 14:38 Oxygen Delivery Method Room Air 09/20/24 14:38 Const Other: General: Comfortable CVS: RRR Respiratory: clear to auscultation bilaterally. Good respiratory effort Skin: No lesions seen MSK: Tender bilateral knees with hypertrophy present and crepitus. Knee flexion 90 degrees bilateral. Office Procedures AMB Joint Injection/Aspiration Joint Injection/Aspiration Details: Bilateral knees Prep: site was prepped using aseptic technique Injected: Euflexxa 20 mg was injected into each knee using 25 gauge 1-1/2 inch needle Procedure: Informed verbal consent was obtained. The patient tolerated the procedure well. Postprocedure protocol was discussed with patient. Coding 59215 - Bilateral Large Joint Procedure code (CPT) selection complete AMB Joint Injection/Aspiration Coding 91591 - Bilateral Large Joint Procedure code (CPT) selection complete Office Meds lidocaine (PF) 10 mg/mL (1 %) injection solution Performing Provider: Jose Miguel Alberto MD Performing Location: [facility] [place] [facility] Documented (not given) by: Jose Miguel Alberto MD on 09/20/24 16:10 Reason Not Given: No Longer Necessary Euflexxa 10 mg/mL (mw 2.4-3.6 million) intra-articular syringe Performing Provider: Jose Miguel Alberto MD Performing Location: [facility] [place] [facility] Administered by: Jose Miguel Alberto MD on 09/20/24 16:10 Dose Route Admin Location Dispensed Lot Number Expiration Date [facility] Administrative Assistant Data Entry 20 mg intra-articular 2 mL X [id number] [employer] lidocaine (PF) 10 mg/mL (1 %) injection solution Performing Provider: Jose Miguel Alberto MD Performing Location: [facility] [place] [facility] Documented (not given) by: Jose Miguel Alberto MD on 09/20/24 16:10 Reason Not Given: No Longer Necessary Euflexxa 10 mg/mL (mw 2.4-3.6 million) intra-articular syringe Performing Provider: Jose Miguel Alberto MD Performing Location: [facility] [place] [facility] Administered by: Jose Miguel Alberto MD on 09/20/24 16:10 Dose Route Admin Location Dispensed Lot Number Expiration Date [facility] Administrative Assistant Data Entry 20 mg intra-articular 2 mL X [id number] [employer] Assessment & Plan Assessment & Plan (1) Primary localized osteoarthritis of knees, bilateral: Comment: CSI b/1 04/2023, 07/2023, 07/2024, L 10/2023, R 11/2023. She had partial relief with cortisone injections to bilateral knees. Failed physical therapy, Tylenol and diclofenac gel. Euflexxa has been approved. Code(s): M17.0 - Bilateral primary osteoarthritis of knee Category: Medical Plan: Patient received Euflexxa bilateral knees 1. Today Return to clinic in 2 weeks for Euflexxa 2. Bilateral knees Orders: Orders AMB Joint Injection/Aspiration Today M17.0 - Bilateral primary osteoarthritis of knee AMB Joint Injection/Aspiration Today M17.0 - Bilateral primary osteoarthritis of knee Coding Level of Care Code Est Pt Level 3 (59725) Complex EM visit Add On G2211 Diagnoses Primary localized osteoarthritis of knees, bilateral M17.0 CPT Codes Coding - 59231 - Bilateral Large Joint: 49507 - Bilateral Large Joint ([id number]) Coding - 25297 - Bilateral Large Joint: 94485 - Bilateral Large Joint ([id number])
[2024-09-20 14:38] VITALS: BP 160/80; PULSE 69; O2SAT 97
== END 2024-09-20 15:29 | disposition home or self-care (01) ==
LOC: HO.RHES 14:27
PROVIDERS: PCP Internal Medicine; Visit Provider Internal Medicine Rheumatology
DX: M17.0 Bilateral primary osteoarthritis of knee (principal)
CPT/HCPCS: 20610; 99213

== ENCOUNTER → 2024-09-20 14:26 | Outpatient (BNVA) | payer MEDICARE, MEDICAID, SELFPAY | PROVIDERS: PCP Internal Medicine; Visit Provider Internal Medicine Rheumatology | DX: M17.0 Bilateral primary osteoarthritis of knee (principal) | CPT/HCPCS: 20610; 99212; J7323 ==

== ENCOUNTER 2024-10-04 14:10 | Outpatient (AMB) | payer MEDICARE, MEDICAID, SELFPAY ==
--- NOTE | 2024-10-04 14:21 | MHC.OFFVIS ---
Vital Signs 10/04/24 14:22 Height 5 ft 1 in BP 122/80 Blood Pressure Location Rt brachial Position Sitting Pulse 68 Pulse Source Pulse Oximeter Pulse Oximetry (%) 100 Oxygen Delivery Method Room Air Intake Visit Reasons: eufflexa injections/ per MD Intake Note: Patient presents follow up Primary localized osteoarthritis of knees, bilateral Allergies No Known Allergies Allergy (Verified 09/20/24 14:37) HPI HPI eufflexa injections/ per MD: Details: She has noticed less pain in knees. She is going up the stairs with less pain. She has been experiencing mid back pain for the last week. Aggravated with change in position and prolonged standing. She has not been self medicating. She is having intermittent pain of bilateral CMCs and bilateral 2nd MCPs. Self-limited pain. No joint swelling. [facility] Medical History Systemic hypertension due to high intracranial pressure Hypertension Primary localized osteoarthritis of knees, bilateral Cervicalgia Carpal tunnel syndrome Arthralgia of shoulder region Arthralgia of hand Surgical History History of right cataract surgery Family History Father No problems noted. Physical Exam Vital Signs: Last Vital Signs Pulse 68 10/04/24 14:22 BP 122/80 10/04/24 14:22 Pulse Ox 100 10/04/24 14:22 Oxygen Delivery Method Room Air 10/04/24 14:22 Const Other: General: Comfortable CVS: RRR Respiratory: clear to auscultation bilaterally. Good respiratory effort Skin: No lesions seen MSK: Squaring of bilateral CMCs left worse than right. No tenderness of MCPs, PIPs or wrists. Tender bilateral knees with hypertrophy present and crepitus. Knee flexion 90 degrees bilateral. No spinous process tenderness. Normal lumbar flexion. She has tenderness to palpate bilateral flank regions. Assessment & Plan Assessment & Plan (1) Primary localized osteoarthritis of knees, bilateral: Comment: CSI b/1 04/2023, 07/2023, 07/2024, L 10/2023, R 11/2023. She had partial relief with cortisone injections to bilateral knees. Failed physical therapy, Tylenol and diclofenac gel. Euflexxa 08/2024- Code(s): M17.0 - Bilateral primary osteoarthritis of knee Category: Medical Plan: Patient received Euflexxa bilateral knees #2 today Return to clinic in 1 week for Euflexxa #3 bilateral knees. (2) Rheumatoid arthritis: Comment: Intermittent bilateral 2nd MCP pain. No synovitis on exam Rheumatology history: New diagnosis of rheumatoid arthritis in [place] a month ago presenting with polyarthritis affecting wrist, hands, knees and feet. She was placed on methotrexate 7.5 mg once weekly, chloroquine and betamethasone 0.5 mg b.i.d. 07/2024 visit she does not have synovitis on exam likely related to betamethasone use and it being too soon on DMARD therapy for full effectiveness (1 month duration). [facility] revealed negative rheumatoid factor, anti CCP antibody, hepatitis screen, elevated ESR 31 mm/hr normal CRP. In [place] on her anti CCP antibody was elevated low titre 32.5 (N<17 U/mL). Code(s): M06.9 - Rheumatoid arthritis, unspecified Category: Medical Qualifiers: Rheumatoid arthritis location: multiple sites Rheumatoid factor presence: unspecified presence Qualified Code(s): M06.9 - Rheumatoid arthritis, unspecified Plan: Diagnostic ultrasound bilateral hands scheduled for tomorrow for evaluation of inflammatory arthritis (3) Osteoarthritis of carpometacarpal (CMC) joint of left thumb: Comment: Left CMC pain is uncontrolled Code(s): M18.12 - Unilateral primary osteoarthritis of first carpometacarpal joint, left hand Category: Medical Plan: Plan for left CMC cortisone injection next visit (4) Back strain: Comment: Due to myofascial strain Code(s): S39.012A - Strain of muscle, fascia and tendon of lower back, initial encounter Category: Medical Plan: Discussed conservative management. She will apply lidocaine patch to back daily and heat/ice back twice a day. She will avoid strenuous exercise. If no improvement in 2 weeks, can consider PT for myofascial release and core strengthening Coding Level of Care Code Est Pt Level 4 (23063) Complex EM visit Add On G2211 Diagnoses Primary localized osteoarthritis of knees, bilateral M17.0 Rheumatoid arthritis involving multiple sites, unspecified whether rheumatoid factor present M06.9 Rheumatoid arthritis location: multiple sites Rheumatoid factor presence: unspecified presence Osteoarthritis of carpometacarpal (CMC) joint of left thumb M18.12 Back strain S39.276A
[2024-10-04 14:22] VITALS: BP 122/80; PULSE 68; O2SAT 100
--- OUTSIDE RECORDS SUMMARY | 2024-10-04 16:45 | XMS_ITS | Data Portability ---
Author Organization [place] - [facility], Allergy Address [address] [place] [address] Assessment Encounter Date Assessment Date Assessment LastModified [...] would like to proceed with left-sided amplification. [email or web address] Not available 11/17/2023 14:29:20 Plan of Treatment Reminders Order Date Submit Date Provider Last Modified By Organization Details Last Modified Time Details Appointments None recorded. Lab None recorded. Referral None recorded. Procedures None recorded. Surgeries None recorded. Imaging None recorded. Medication Orders ciprofloxac in 0.3 %-dexametha sone 0.1 % ear drops,suspe nsion 2023 024 [facility], [address] [place] [address], [address], 11:14:47 Patient TargetsNo targets recorded. Patient InstructionsNo instructions recorded. Reason for Referral None Reported. Results Created Date Observation Date Name Description Value Unit Range Abnormal Flag Note LastModifiedBy Organization Detail LastModifiedTime 11/21/19 24 audio gram No observ ation record ed. [email or web address] Not Available 10/24 09:22:22 Result Notes None recorded. Problems Name Problem SNOMED Code Status Onset Date Resolution Date Notes Provider Name and Address Organization Details Recorded Time Perforation of left tympanic membrane 8808257512721 103 Active 2023 AKIL NOBLE MD [address] [address], [facility] [place], [address], [facility] - [facility] 4 11:13:27 Otorrhea of left ear 0669032183680 108 Active 2023 AKIL NOBLE MD [address] [address], [place], [address], [facility] - [facility] 4 11:13:37 Sensorineur al hearing loss 23872563 Active 2023 JAIME ANDRE [address] [address], [place], [address], [place] - [facility] [place] 4 13:38:57 Mixed conductive AND sensorineur al hearing loss 69298200 Active 2023 JAIME ANDRE [address] [address], [facility] [place], [address], [place] [facility] 4 13:41:49 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 Procedures Surgical History Date Name Laterality Status Provider Name and Address Organization Details Recorded Time Comp Audio with Tymps - 89136 & 90306 completed JAIME ANDRE 100 [facility],[address], [address], [facility] 11/17/2023 13:38:50 EAC debris removal with microscope completed AKIL NOBLE MD 100 [facility],[address], [address], [facility] - [facility] 10/21/2023 11:13:14 Imaging Results None recorded. Procedure [...] [place] - [facility] 10/21/2023 11:02:59 Date Recorded Body height Body mass index (BMI) Body weight Provider Name and Address Organization Details Last Updated DateTime 11/17/2023 160.02 cm 31.9 kg/m2 79237.63 g Kong Shahram [place] - [facility] 11/17/2023 13:08:06 Social History None recorded. Functional [...] Note [id number] AKIL NOBLE MD [facility] [address] [address] 10/21/2023 09:52:23 10/21/2023 11:18:46 Perforation of left tympanic membrane 4653499239 350217 H72.92 Otorrhea of left ear 192 7436675 583437 H92.12 9523 ENRIQUE EDMONDS PA-C [facility] [address] [address] 11/17/2023 12:33:54 11/17/2023 14:17:30 Otorrhea of left ear 2546638968 184212 H92.12 Perforatio n of left tympanic membrane 7824520153 789547 H72.02 Mixed cond uctive and sensorineural hearing loss of left ear 3851091748 9107 H90.A32 Sensorineu ral hearing loss in right ear 6229943102 9100 H90.A21 9546 JAIME ANDRE [facility] [address] [address] 11/17/2023 13:38:05 11/22/2023 09:08:20 Sensorineural hearing loss 32380104 H90.A21 Mixed cond uctive AND sensorineural hearing loss 85092118 H90.A32 Audiologic al evaluation results: Right ear: [...] ID Guarantor Name 11/17/2023 1 [place]ICARE B-[place]: [employer] Samer Madrigal [id number] Samer Madrigal 12/13/2023 2 [place] [facility] Samer Madrigal [id number] Samer Madrigal Notes Date Note Type Note Provider Name and Address Organization Details Recorded Time 10/21/2023 text/html 68-year-old ryan fabian who comes in today for evaluation of the left ear. 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 She has noticed long-term hearing loss as a result. She began noticing left-sided ear pain and otorrhea a few days ago. This has not been a recurring issue for her in the past AKIL NOBLE MD 100 [facility],[address], [address], [place] - [facility] 10/21/2023 11:19:59 11/17/2023 text/html 68-year-old ryan fabian presents for follow-up of left ear infection. Exam at the previous visit noted 60% perforation with otorrhea on the left. She was started on Ciprodex. Denies otalgia and otorrhea. Continues to have difficulty hearing. AKIL NOBLE MD 100 [facility],[address], [address], [place] - [facility] 11/17/2023 17:02:51 11/17/2023 text/html Audiological Evaluation HPIReported bypatient.Hearing loss perceived:both ears: left ear worse; Perf, . UMER KENT, JAIME 100 [facility],[address], [address], [place] - [facility] 11/17/2023 13:45:27 OBGyn Episode No OBEpisode recorded.
== END 2024-10-04 15:24 | disposition home or self-care (01) ==
LOC: HO.RHES 14:11
PROVIDERS: PCP Internal Medicine; Visit Provider Internal Medicine Rheumatology
DX: M06.00 Rheumatoid arthritis without rheumatoid factor, unspecified site (principal); M17.0 Bilateral primary osteoarthritis of knee; M18.12 Unilateral primary osteoarthritis of first carpometacarpal joint, left hand; S39.012A Strain of muscle, fascia and tendon of lower back, initial encounter
CPT/HCPCS: 20610; 99214

== ENCOUNTER → 2024-10-04 14:10 | Outpatient (BNVA) | payer MEDICARE, MEDICAID, SELFPAY | PROVIDERS: PCP Internal Medicine; Visit Provider Internal Medicine Rheumatology | DX: M17.0 Bilateral primary osteoarthritis of knee (principal); M06.9 Rheumatoid arthritis, unspecified; M18.12 Unilateral primary osteoarthritis of first carpometacarpal joint, left hand; S39.012A Strain of muscle, fascia and tendon of lower back, initial encounter | CPT/HCPCS: 20610; 99212; J7323 ==

== ENCOUNTER 2024-10-10 14:32 | Outpatient (AMB) | payer MEDICARE, MEDICAID, SELFPAY ==
--- NOTE | 2024-10-10 14:38 | MHC.OFFVIS ---
Vital Signs 10/10/24 14:39 Height 5 ft 1 in Weight 155 lb BMI 29.3 BP 130/80 Blood Pressure Location Lt brachial Position Sitting Pulse 68 Pulse Source Pulse Oximeter Pulse Oximetry (%) 99 Oxygen Delivery Method Room Air Intake Visit Reasons: Euflexxa #3/ Per MD Intake Note: Euflexxa #4 Accompanied by: Spouse Allergies No Known Allergies Allergy (Verified 09/20/24 14:37) HPI HPI Euflexxa #3/ Per MD: Details: She has found benefit with 2nd Euflexxa injections. Less pain and swelling. No new joint swelling in her hands. Pain in hands is intermittent. [facility] Medical History Systemic hypertension due to high intracranial pressure Hypertension Primary localized osteoarthritis of knees, bilateral Cervicalgia Carpal tunnel syndrome Arthralgia of shoulder region Arthralgia of hand Surgical History History of right cataract surgery Family History Father No problems noted. Physical Exam Vital Signs: Last Vital Signs Pulse 68 10/10/24 14:39 BP 130/80 10/10/24 14:39 Pulse Ox 99 10/10/24 14:39 Oxygen Delivery Method Room Air 10/10/24 14:39 BMI result Body Mass Index 29.3 Const Other: General: Comfortable CVS: RRR Respiratory: clear to auscultation bilaterally. Good respiratory effort Skin: No lesions seen MSK: Tender bilateral knees with hypertrophy present and crepitus. Knee flexion 90 degrees bilateral. Office Procedures AMB Joint Injection/Aspiration Joint Injection/Aspiration Details: Bilateral knees Prep: site was prepped using aseptic technique Injected: Euflexxa 20 mg was injected into each knee using 25 gauge 1-1/2 inch needle Procedure: Verbal informed consent was obtained. The patient tolerated the procedure well. Postprocedure protocol was discussed with patient. Coding 07059 - Bilateral Large Joint Procedure code (CPT) selection complete AMB Joint Injection/Aspiration Coding 06454 - Bilateral Large Joint Procedure code (CPT) selection complete Office Meds Euflexxa 10 mg/mL (mw 2.4-3.6 million) intra-articular syringe Performing Provider: Jose Miguel Alberto MD Performing Location: [facility] Administered by: Jose Miguel Alberto MD on 10/10/24 15:33 Dose Route Admin Location Dispensed Lot Number Expiration Date [facility] [employer] St[employer] 20 mg intra-articular 2 mL [id number] 08/13/25 [address]-2 [employer] Total Dispensed Waste 2 mL 0 % Euflexxa 10 mg/mL (mw 2.4-3.6 million) intra-articular syringe Performing Provider: Jose Miguel Alberto MD Performing Location: [facility] Administered by: Jose Miguel Alberto MD on 10/10/24 15:33 Dose Route Admin Location Dispensed Lot Number Expiration Date [facility] [employer] 20 mg intra-articular 2 mL [id number] 08/13/25 [address]-7 [employer] Total Dispensed Waste 2 mL 0 % Assessment & Plan Assessment & Plan (1) Primary localized osteoarthritis of knees, bilateral: Comment: CSI b/1 04/2023, 07/2023, 07/2024, L 10/2023, R 11/2023. She had partial relief with cortisone injections to bilateral knees. Failed physical therapy, Tylenol and diclofenac gel. Euflexxa 08/2024- Code(s): M17.0 - Bilateral primary osteoarthritis of knee Category: Medical Plan: Patient received Euflexxa bilateral knees #3 Today (2) Rheumatoid arthritis: Comment: Intermittent bilateral 2nd MCP pain without synovitis. Workup for inflammatory arthritis in progress Rheumatology history: New diagnosis of rheumatoid arthritis in [place] a month ago presenting with polyarthritis affecting wrist, hands, knees and feet. She was placed on methotrexate 7.5 mg once weekly, chloroquine and betamethasone 0.5 mg b.i.d. 07/2024 visit she does not have synovitis on exam likely related to betamethasone use and it being too soon on DMARD therapy for full effectiveness (1 month duration). [facility] workup revealed negative rheumatoid factor, anti CCP antibody, hepatitis screen, elevated ESR 31 mm/hr normal CRP. In [place] on her anti CCP antibody was elevated low titre 32.5 (N<17 U/mL). Code(s): M06.9 - Rheumatoid arthritis, unspecified Category: Medical Qualifiers: Rheumatoid arthritis location: multiple sites Rheumatoid factor presence: unspecified presence Qualified Code(s): M06.9 - Rheumatoid arthritis, unspecified Plan: Diagnostic ultrasound bilateral hands scheduled for November 02 for evaluation of inflammatory arthritis Return to clinic in 2 months or sooner if joint symptoms progress (3) Osteoarthritis of carpometacarpal (CMC) joint of left thumb: Comment: Left CMC pain is intermittent Code(s): M18.12 - Unilateral primary osteoarthritis of first carpometacarpal joint, left hand Category: Medical Plan: Use CMC splint during the day Return to clinic in 2 months or sooner if needed for cortisone injection Orders: Orders AMB Joint Injection/Aspiration Today M17.0 - Bilateral primary osteoarthritis of knee AMB Joint Injection/Aspiration Today M17.0 - Bilateral primary osteoarthritis of knee Coding Level of Care Code Est Pt Level 3 (62861) Complex EM visit Add On G2211 Diagnoses Primary localized osteoarthritis of knees, bilateral M17.0 Rheumatoid arthritis involving multiple sites, unspecified whether rheumatoid factor present M06.9 Rheumatoid arthritis location: multiple sites Rheumatoid factor presence: unspecified presence Osteoarthritis of carpometacarpal (CMC) joint of left thumb M18.12 CPT Codes Coding - 30564 - Bilateral Large Joint: 80124 - Bilateral Large Joint ([id number]) Coding - 25800 - Bilateral Large Joint: 78392 - Bilateral Large Joint ([id number])
[2024-10-10 14:39] VITALS: BP 130/80; PULSE 68; O2SAT 99; BMI 29.3
--- OUTSIDE RECORDS SUMMARY | 2024-10-10 16:44 | XMS_ITS | Data Portability ---
Author Organization [place] [facility], Allergy Address [address] [place] [id number] Assessment Encounter Date Assessment Date Assessment LastModified [...] would like to proceed with left-sided amplification. [email or web address] Not available 11/17/2023 14:29:20 Plan of Treatment Reminders Order Date Submit Date Provider Last Modified By Organization Details Last Modified Time Details Appointments None recorded. Lab None recorded. Referral None recorded. Procedures None recorded. Surgeries None recorded. Imaging None recorded. Medication Orders ciprofloxac in 0.3 %-dexametha sone 0.1 % ear drops,suspe nsion 2023 024 [facility], [address] [place] [address], [address], 11:14:47 Patient TargetsNo targets recorded. Patient InstructionsNo instructions recorded. Reason for Referral None Reported. Results Created Date Observation Date Name Description Value Unit Range Abnormal Flag Note LastModifiedBy Organization Detail LastModifiedTime 11/21/19 24 audio gram No observ ation record ed. [email or web address] Not Available 10/24 09:22:22 Result Notes None recorded. Problems Name Problem SNOMED Code Status Onset Date Resolution Date Notes Provider Name and Address Organization Details Recorded Time Perforation of left tympanic membrane 9259583984099 103 Active 2023 AKIL NOBLE MD [address] [address], [facility] [place], [address], [facility] - [facility] 4 11:13:27 Otorrhea of left ear 7543797260541 108 Active 2023 AKIL NOBLE MD [address] [address], [place], [address], [facility] - [facility] 4 11:13:37 Sensorineur al hearing loss 60522256 Active 2023 JAIME ANDRE [address] [address], [place], [address], [place] [facility] [place] 4 13:38:57 Mixed conductive AND sensorineur al hearing loss 65718830 Active 2023 JAIME ANDRE [address] [address], [facility] [place], [address], [place] [facility] 4 13:41:49 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 Procedures Surgical History Date Name Laterality Status Provider Name and Address Organization Details Recorded Time Comp Audio with Tymps - 27615 & 13524 completed JAIME ANDRE [address] [facility],[address], [address], [facility] 11/17/2023 13:38:50 EAC debris removal with microscope completed AKIL NOBLE MD [address] [facility],[address], [address], [facility] - [facility] 10/21/2023 11:13:14 Imaging Results None recorded. [...] [place] [facility] 10/21/2023 11:02:59 Date Recorded Body height Body mass index (BMI) Body weight Provider Name and Address Organization Details Last Updated DateTime 11/17/2023 160.02 cm 31.9 kg/m2 68069.63 g Kong Shahram [place] [facility] 11/17/2023 13:08:06 Social History None recorded. [...] Note [id number] AKIL NOBLE MD [facility] [address] [address] 10/21/2023 09:52:23 10/21/2023 11:18:46 Perforation of left tympanic membrane 0156099283 619595 H72.92 Otorrhea of left ear 014 9056968 918935 H92.12 9523 ENRIQUE EDMONDS PA-C [facility] [address] [address] 11/17/2023 12:33:54 11/17/2023 14:17:30 Otorrhea of left ear 5867820712 903812 H92.12 Perforatio n of left tympanic membrane 7481270988 943080 H72.02 Mixed cond uctive and sensorineural hearing loss of left ear 1764305685 9107 H90.A32 Sensorineu ral hearing loss in right ear 6987553346 9100 H90.A21 9546 JAIME ANDRE [facility] [address] [address] 11/17/2023 13:38:05 11/22/2023 09:08:20 Sensorineural hearing loss 87374443 H90.A21 Mixed cond uctive AND sensorineural hearing loss 87771807 H90.A32 Audiologic al evaluation results: Right ear: [...] ID Guarantor Name 11/17/2023 1 [place] B[place]: [employer] Samer Madrigal [id number] Samer Madrigal 12/13/2023 2 [place]: [facility] Samer Madrigal [id number] Samer Madrigal Notes Date Note Type Note Provider Name and Address Organization Details Recorded Time 10/21/2023 text/html 68-year-old ryan fabian who comes in today for evaluation of the left ear. 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 She has noticed long-term hearing loss as a result. She began noticing left-sided ear pain and otorrhea a few days ago. This has not been a recurring issue for her in the past AKIL NOBLE MD [address] [facility],[address], [address], [place] [facility] 10/21/2023 11:19:59 11/17/2023 text/html 68-year-old ryan fabian presents for follow-up of left ear infection. Exam at the previous visit noted 60% perforation with otorrhea on the left. She was started on Ciprodex. Denies otalgia and otorrhea. Continues to have difficulty hearing. AKIL NOBLE MD [address] [facility],[address], [address], [place] [facility] 11/17/2023 17:02:51 11/17/2023 text/html Audiological Evaluation HPIReported bypatient.Hearing loss perceived:both ears: left ear worse; Perf, . UMER KENT, JAIME [address] [facility],[address], [address], [place] [facility] 11/17/2023 13:45:27 OBGyn Episode No OBEpisode recorded.
== END 2024-10-10 15:31 | disposition home or self-care (01) ==
LOC: HO.RHES 14:33
PROVIDERS: PCP Internal Medicine; Visit Provider Internal Medicine Rheumatology
DX: M06.09 Rheumatoid arthritis without rheumatoid factor, multiple sites (principal); M17.0 Bilateral primary osteoarthritis of knee; M18.12 Unilateral primary osteoarthritis of first carpometacarpal joint, left hand
CPT/HCPCS: 20610; 99213

== ENCOUNTER → 2024-10-10 14:32 | Outpatient (BNVA) | payer MEDICARE, MEDICAID, SELFPAY | PROVIDERS: PCP Internal Medicine; Visit Provider Internal Medicine Rheumatology | DX: M17.0 Bilateral primary osteoarthritis of knee (principal); M06.9 Rheumatoid arthritis, unspecified; M18.12 Unilateral primary osteoarthritis of first carpometacarpal joint, left hand | CPT/HCPCS: 20610; 99212; J7323 ==

== ENCOUNTER 2024-11-02 09:05 | Outpatient (REF) | payer MEDICARE, MEDICAID, SELFPAY ==
--- NOTE | 2024-11-02 10:32 | PCN2_ITS ---
Brief Operative Note Date of procedure: 11/02/24 Pre-op diagnosis: Rheumatoid arthritis Procedure: Date: 11/02/24 Study Type: Complete diagnostic US of the right and left hand Indication: Concern for underlying synovitis Study Site: Right and Left 2nd digit Equipment: Locationa Brief History: Diagnosed with rheumatoid arthritis in [place] earlier this year after presenting with polyarthritis affecting wrists, hands, knees and feet was started on methotrexate 7.5 mg weekly, chloroquine and betamethasone. There has not been any active synovitis noted in the examination. Relevant meds: ?Off Betamethasone since 08/2024. MTX 2.5mg PO weekly Relevant labs: Laboratory Tests 08/23/24 09:18 ESR 29 H C-Reactive Protein 0.21 XR Images reviewed: XR Bilateral Hands 07/2024 Findings (Left Hand): There is no fracture or dislocation. There is severe osteoarthritis of the 1st carpometacarpal joint and triscaphe joint in the wrist. Joint spaces are otherwise preserved. There is no bone erosion. Impression: 1. No findings of rheumatoid arthritis. 2. Osteoarthritis as above. Findings (Right Hand): There is no fracture or dislocation. There is severe osteoarthritis of the 1st carpometacarpal joint and triscaphe joint in the wrist. There is mild osteoarthritis in distal interphalangeal joints. There is no bone erosion. Impression: 1. No findings of rheumatoid arthritis. 2. Osteoarthritis as above. Findings: ?Orthogonal views of the dorsal, palmar, longitudinal and transverse views of the right 2nd digit and left 2nd digit were obtained in grayscale and Doppler. Tendons: No tendon breaks or tears. No fluid around the tendons or Doppler signal involving the tendon Bones: Bony stepoff noted the right dorsal 2nd MCP in the longitudinal view Joints: Joints reviewed included the right 2nd MCP dorsal and palmar views as well as the 2nd PIP. No evidence of synovial hypertrophy to these joints. Mild synovial distension noted to the dorsal view of the right 2nd MCP. Also re viewed left 2nd MCP dorsal and palmar views as well as the 2nd PIP. No evidence of synovial hypertrophy to these joints. Normal Doppler signal. Joint space narrowing noted to the bilateral 2nd PIPs. Right and left 1st CMC joints also viewed (only pictures of the left taken) no synovial hypertrophy but there was some power Doppler activity noted adjacent to the joint but did not involve the joint proper (possibly a blood vessel or mild tendonitis). This was not significant based on the OMERACT guidelines Impressions: ? Osteoarthritis of bilateral hands without evidence of synovitis. Bony step-off noted to the 2nd MCP consistent with an osteophyte. No erosions noted. Mild synovial distention noted to the right 2nd MCP is commonly seen in a dominant hand (patient right hand dominant) Possible mild tendonitis of the left 1st compartment tendons (can correlate clinically)
== END 2024-11-02 09:06 | disposition home or self-care (01) ==
LOC: HO.US 09:05
PROVIDERS: PCP Internal Medicine; Visit Provider Student in an Organized Health Care Education/Training Program
DX: M19.031 Primary osteoarthritis, right wrist (principal); M19.032 Primary osteoarthritis, left wrist; M18.9 Osteoarthritis of first carpometacarpal joint, unspecified
CPT/HCPCS: 20606

== ENCOUNTER → 2024-11-02 09:05 | Outpatient (BNV) | payer MEDICARE, MEDICAID, SELFPAY | PROVIDERS: PCP Internal Medicine; Visit Provider Student in an Organized Health Care Education/Training Program | DX: M18.0 Bilateral primary osteoarthritis of first carpometacarpal joints (principal); M19.041 Primary osteoarthritis, right hand; M19.042 Primary osteoarthritis, left hand | CPT/HCPCS: 76881 ==

== ENCOUNTER 2024-12-11 13:59 | Outpatient (AMB) | payer MEDICARE, MEDICAID, SELFPAY ==
--- OUTSIDE RECORDS SUMMARY | 2024-12-05 23:59 | XMS_ITS | Continuity of Care Document ---
Author Organization [facility] Address [address] [place] [address]- Care Team Providers Care Field Staff Name Role Phone [place] HILARIO, Merlin Primary Care Physician Encounter [facility] Date(s): 11/05/24 - 12/05/24 [facility] [address] [place] [address]- Encounter Diagnosis Rheumatoid arthritis(Discharge Diagnosis) - 10/09/24 Attending Physician: Chris Grace Admitting Physician: Chris Grace Referring Physician: AdmChris gaspar Encounter Type: Triage Allergies, Adverse Reactions, Alerts No Known Allergies Immunizations Given and Recorded Vaccine Date Status Refusal Reason pneumococcal 20-valent conjugate vaccine 06/30/23 Given tetanus/diphtheria/pertussis, acel(Tdap) 06/30/23 Given influenza virus vaccine, inactivated 06/30/23 Give n Medications amLODIPine 10 mg oral tablet 10 mg, 1, tablet, By Mouth, Daily, # 90 tablet, Refills 4, Tot. Refills 4, Maintenance, 11/05/24 2:53:00 PM EDT, Route to Pharmacy Electronically, [facility]/pharmacy #[id number], Partial fill upon patient requestif the prescription is for a schedule II opioid drug., 161, cm, 11/05/24 14:27:00 EDT, Height, 75.2, kg, 11/11/23 18:00:00 EDT, Dry Weight Start Date: 11/05/24 Stop Date: 01/29/26 Status: Ordered Quantity: 90.0 Unit: tablet Repeat number: 5 atorvastatin 80 mg oral tablet 1 tablet = 80 mg, By Mouth, Daily, for 90 days, # 90 tablet, 4 Refills, Hard Stop 01/29/26 2:53:00 PM EDT, 11/05/24 2:53:00 PM EDT, Tablet, [facility]/pharmacy #[id number], Partial fill upon patient request if the prescription is for a schedule II opioid drug., 161, cm, 11/05/24 14:27:00 EDT, Height, 75.2, kg, 11/11/23 18:00:00 EDT, Dry Weight Start Date: 11/05/24 Stop Date: 01/29/26 Status: Ordered Quantity: 90.0 Unit: tablet Repeat number: 5 Compression Stockings See Instructions, # 4 each, Refills 2, Tot. Refills 2, Maintenance, 4 each = 2 pair of surgical, calf length 20-30 mm Hg; Dx: I83.813; Duration: Lifetime, 11/06/24 9:42:00 AM EDT, Supply Start Date: 11/06/24 Status: Ordered Quantity: 4.0 Unit: each Repeat number: 3 Home Blood Pressure Monitor See Instructions, # 1 each, Maintenance, Measure blood pressure once a day at home daily at the same time, preferably in the morning., 06/30/23 4:10:00 PM EST, Supply Start Date: 06/30/23 Status: Ordered Quantity: 1.0 Unit: each Repeat number: 1 losartan 25 mg oral tablet 1 tablet, By Mouth, Daily, # 90 tablet, 4 Refills, Maintenance, 11/05/24 2:53:00 PM EDT, [facility]/pharmacy #[id number], 161, cm, 11/05/24 14:27:00 EDT, Height, 75.2, kg, 11/11/23 18:00:00 EDT, Dry Weight Start Date: 11/05/24 Stop Date: 01/29/26 Status: Ordered Quantity: 90.0 Unit: tablet Repeat number: 5 Problem List Condition Confirmation Course Effective Dates Status H ealth Status Informant Chronic suppurative otitis media of left ear Confirmed Active S/P right cataract extraction Confirmed Active Hyperlipidemia Confirmed Active Hypertension Confirmed Active Osteoarthritis of knee 1 Confirmed Active Osteoporosis of femur without pathological fracture Confirmed Active Rheumatoid arthritis Confirmed Active Subclinical hyperthyroidism Confirmed Active Tinnitus, left Confirmed Active 1Bilateral, following with Rheumatology (Dr. Jose Miguel Alberto), currently being treated with intra-articular corticosteroid injections Diagnosis Diagnosis Type Effective Dates Health Status Clinical Service Informant Rheumatoid arthritis 1 Discharge Diagnosis 10/09/24 Non-Specified 13:50 EDT - Malia Vergara DOer on MTX adn hydroxychloroquin, managed by rheum. Social History Social History Type Response Smoking Status Never (less than 100 in lifetime) entered on: 06/30/23 Sex Sex Representation Female (finding) Laboratory * Event Display: Non BH Lab Results Authored Date: * Event Display: Non BH Lab Results Authored Date: Patient Care team information Care Team Personnel Name: Merlin Grove MD Position: [facility] Resident Member Role: PCP Address: [address] [place] [address] Telecom: Care Team Related Persons Name: JAXSON ELIZABETH Insurance Providers Guarantor name: LISANDRO HAYNES Health Plan Information #: 1 Payer: MEDICARE B Payer Identifier: Member Number: [id number] Group Number: Subscriber Identifier: [id number] Relationship to Subscriber: self Coverage Type: NA Coverage Verification Date: NA Telecom: NA Address: Health Plan Information #: 2 Payer: [employer] Payer Identifier: Member Number: [id number] Group Number: Subscriber Identifier: [id number] Relationship to Subscriber: self Coverage Type: MEDICAID Coverage Verification Date: NA Telecom: NA Address:
--- NOTE | 2024-12-11 14:09 | A.OFFVIS_ITS ---
Vital Signs 12/11/24 14:10 Height 5 ft 1 in Weight 159 lb 6 oz BMI 30.1 BP 140/86 H Blood Pressure Location Rt brachial Position Sitting Pulse 78 Pulse Source Pulse Oximeter Pulse Oximetry (%) 98 Oxygen Delivery Method Room Air Intake Visit Reasons: US result review Intake Note: Patient presents follow up Primary localized osteoarthritis of knees, bilateral. Accompanied by: spoude Allergies No Known Allergies Allergy (Verified 12/11/24 14:13) HPI HPI US result review: Details: She has received 50% benefit in reducing knee pain. She has to rest every half an ever when she is on her feet. She has not been active with activities. She does not take Tylenol. Using cane to ambulate. She has not been doing exercises learned from PT in the past. Intermittent CMC pain sometimes related to activity. She wears her wrist braces at night. FORMERLY [facility] Medical History Systemic hypertension due to high intracranial pressure Hypertension Primary localized osteoarthritis of knees, bilateral Cervicalgia Carpal tunnel syndrome Arthralgia of shoulder region Arthralgia of hand Surgical History History of right cataract surgery Family History Father No problems noted. Physical Exam Vital Signs: Last Vital Signs Pulse 78 12/11/24 14:10 BP 140/86 H 12/11/24 14:10 Pulse Ox 98 12/11/24 14:10 Oxygen Delivery Method Room Air 12/11/24 14:10 BMI result Body Mass Index 30.1 Const Other: General: Comfortable CVS: RRR Respiratory: clear to auscultation bilaterally. Good respiratory effort Skin: No lesions seen MSK: Tender bilateral knees with hypertrophy present and crepitus. Knee flexion right 90 degrees, left 30 degrees. No synovitis. Squaring of bilateral CMCs. 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 Normal range of motion of upper extremities. Results Reviewed Results Reviewed: XR Images reviewed: XR Bilateral Hands 07/2024 Findings (Left Hand): There is no fracture or dislocation. There is severe osteoarthritis of the 1st carpometacarpal joint and triscaphe joint in the wrist. Joint spaces are otherwise preserved. There is no bone erosion. Impression: 1. No findings of rheumatoid arthritis. 2. Osteoarthritis as above. Findings (Right Hand): There is no fracture or dislocation. There is severe osteoarthritis of the 1st carpometacarpal joint and triscaphe joint in the wrist. There is mild osteoarthritis in distal interphalangeal joints. There is no bone erosion. Impression: 1. No findings of rheumatoid arthritis. 2. Osteoarthritis as above. Findings: ?Orthogonal views of the dorsal, palmar, longitudinal and transverse views of the right 2nd digit and left 2nd digit were obtained in grayscale and Doppler. Tendons: No tendon breaks or tears. No fluid around the tendons or Doppler signal involving the tendon Bones: Bony stepoff noted the right dorsal 2nd MCP in the longitudinal view Joints: Joints reviewed included the right 2nd MCP dorsal and palmar views as well as the 2nd PIP. No evidence of synovial hypertrophy to these joints. Mild synovial distension noted to the dorsal view of the right 2nd MCP. Also reviewed left 2nd MCP dorsal and palmar views as well as the 2nd PIP. No evidence of synovial hypertrophy to these joints. Normal Doppler signal. Joint space narrowing noted to the bilateral 2nd PIPs. Right and left 1st CMC joints also viewed (only pictures of the left taken) no synovial hypertrophy but there was some power Doppler activity noted adjacent to the joint but did not involve the joint proper (possibly a blood vessel or mild tendonitis). This was not significant based on the OMERACT guidelines Impressions: ? Osteoarthritis of bilateral hands without evidence of synovitis. Bony step-off noted to the 2nd MCP consistent with an osteophyte. No erosions noted. Mild synovial distention noted to the right 2nd MCP is commonly seen in a dominant hand (patient right hand dominant) Possible mild tendonitis of the left 1st compartment tendons (can correlate clinically) Assessment & Plan Assessment & Plan (1) Primary localized osteoarthritis of knees, bilateral: Comment: She failed treatment with Euflexxa. We discussed medical management of knee pain from osteoarthritis. Duloxetine is indicated. I prefer duloxetine over gabapentin due to it safer drug side effect profile. Patient agrees with plan. Rheumatology history: CSI b/1 04/2023, 07/2023, 07/2024, L 10/2023, R 11/2023. She had partial relief with cortisone injections to bilateral knees. Failed physical therapy, Tylenol and diclofenac gel. Euflexxa 08/2024- Code(s): M17.0 - Bilateral primary osteoarthritis of knee Category: Medical Plan: Creatinine ordered Start duloxetine 30 mg daily. After 1 month if there is no change in pain, she will call office. I will then increase duloxetine to 60 mg daily. Try acetaminophen 650 mg 1-2 tablets every 8 hours prn pain Continue to use diclofenac gel 1% q.i.d. PRN pain Try lidocaine topical or patch PRN pain PT ordered for knee strengthening, TENs unit, k taping Return to clinic in 3 months (2) Rheumatoid arthritis: Comment: Ultrasound of bilateral 2nd MCPs did not reveal inflammatory arthritis. She has degenerative arthritis on imaging. Rheumatology history: New diagnosis of rheumatoid arthritis in [place] a month ago presenting with polyarthritis affecting wrist, hands, knees and feet. She was placed on methotrexate 7.5 mg once weekly, chloroquine and betamethasone 0.5 mg b.i.d. 07/2024 visit she does not have synovitis on exam likely related to betamethasone use and it being too soon on DMARD therapy for full effectiveness (1 month duration). [facility] workup revealed negative rheumatoid factor, anti CCP antibody, hepatitis screen, elevated ESR 31 mm/hr normal CRP. In [place] on her anti CCP antibody was elevated low titre 32.5 (N<17 U/mL). Code(s): M06.9 - Rheumatoid arthritis, unspecified Category: Medical Qualifiers: Rheumatoid arthritis location: multiple sites Rheumatoid factor presence: unspecified presence Qualified Code(s): M06.9 - Rheumatoid arthritis, unspecified Plan: Monitor clinically (3) Osteoarthritis of carpometacarpal (CMC) joint of left thumb: Comment: Intermittent bilateral CMC pain. Code(s): M18.12 - Unilateral primary osteoarthritis of first carpometacarpal joint, left hand Category: Medical Plan: OT with custom bilateral CMC splints Try paraffin wax bath (4) Bilateral carpal tunnel syndrome: Comment: Bilateral on nerve conduction study. Resolved with wearing cock-up wrist braces at night. Code(s): G56.03 - Carpal tunnel syndrome, bilateral upper limbs Category: Medical Plan: Requesting EMG report from [facility] Orders: Orders PT Evaluation and Treatment Today M17.0 - Bilateral primary osteoarthritis of knee OT Evaluation and Treatment Today M18.12 - Unilateral primary osteoarthritis of first carpometacarpal joint, left hand Creatinine Today M17.0 - Bilateral primary osteoarthritis of knee Medications: New duloxetine 30 mg PO DAILY 30 caps 11RF Coding Level of Care Code Est Pt Level 4 (85731) Complex EM visit Add On G2211 Diagnoses Primary localized osteoarthritis of knees, bilateral M17.0 Rheumatoid arthritis involving multiple sites, unspecified whether rheumatoid factor present M06.9 Rheumatoid arthritis location: multiple sites Rheumatoid factor presence: unspecified presence Osteoarthritis of carpometacarpal (CMC) joint of left thumb M18.12 Bilateral carpal tunnel syndrome G56.03
[2024-12-11 14:10] VITALS: BP 140/86; PULSE 78; O2SAT 98; BMI 30.1
== END 2024-12-11 15:02 | disposition home or self-care (01) ==
LOC: HO.RHES 13:59
PROVIDERS: PCP Internal Medicine; Visit Provider Internal Medicine Rheumatology
DX: M17.0 Bilateral primary osteoarthritis of knee (principal); M06.9 Rheumatoid arthritis, unspecified; M18.12 Unilateral primary osteoarthritis of first carpometacarpal joint, left hand; G56.03 Carpal tunnel syndrome, bilateral upper limbs
CPT/HCPCS: 99214; G2211

== ENCOUNTER → 2024-12-11 13:59 | Outpatient (BNVA) | payer MEDICARE, MEDICAID, SELFPAY | PROVIDERS: PCP Internal Medicine; Visit Provider Internal Medicine Rheumatology | DX: M17.0 Bilateral primary osteoarthritis of knee (principal); M06.9 Rheumatoid arthritis, unspecified; M18.12 Unilateral primary osteoarthritis of first carpometacarpal joint, left hand; G56.03 Carpal tunnel syndrome, bilateral upper limbs | CPT/HCPCS: 99212 ==

== ENCOUNTER 2025-03-11 13:54 | Outpatient (RCR) | payer MEDICARE, MEDICAID, SELFPAY ==
[2025-01-29 09:05] VITALS: BP 120/68; PULSE 68; O2SAT 98
--- NOTE | 2025-01-29 14:59 | MHC.PT.EP ---
[facility] [place] Office [place] Office [place] Office [address] Lorena De Anda [address] [phone] F: [phone] F: [phone] F: [phone] F: [phone] Physical Therapy Plan of Care Date of Evaluation: 01/29/25 Date of Surgery: Diagnosis: M17.0 PT eval and treatment, Bilateral primary osteoarthritis of knee, primary localized osteoarthritis of knees, bilateral. Exercise strengthening program. Improve ROM. TENS unit signed by Dr. 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 Alberto for treatment of , M17.0 PT eval and treatment, Bilateral primary osteoarthritis of knee, primary localized osteoarthritis of knees, bilateral. Exercise strengthening program. Improve ROM. TENS unit signed by Dr. Alberto 12/12/24. She exhibits L knee AROM 0 to 112, R knee 0- 110. She has poor SLR on the L and c/o ITB pain and left lateral hip pain sx as well. She is weak in proximal hip abd/core and will benefit from stabilization. She is unsteady upon standing and has poor static standing balance (unable to perform SLS). Pt with history of failed PT in the past, poor carryover of previous PT exercises, expresses L>R knee pain with limited tolerance for standing/walking due to sx. Pt will benefit from trial of PT 1-2x/week x 4 weeks to address impairments, implement HEP, and with goal of improving functional mobility tolerance. Post initial assessment she was trialed with ROCKTAPE application to L>R knee in effort to reduce anterior knee pain. Pt verbalized relief and positive response to application. She was given handout re: CORE ROCKTAPE education sheet for removal/goals/indications/education. She was also educated re: use of flexbar/rolling pin massage roller for HS ,ITB, and quadriceps. She was shown seated HS stretch with good outcomes. She will be started with gentle quad strengthening and trial of bike next session. She expressed history of L>R sided neck pain and asked if this was part of her treatment regimen. She was shown seated upper trap and levator scap stretches in addition to her knee activity. PMH significant for: Systemic hypertension due to high intracranial pressure Hypertension Primary localized osteoarthritis of knees, bilateral Cervicalgia Carpal tunnel syndrome Arthralgia of shoulder region Arthralgia of hand History of right cataract surgery. Frequency and Duration: The patient will be seen 1x/week x 4 weeks Short Term Goals: 1. Initiate self-care/HEP program for bilateral knee pain. (IR: no program currently) 2. Improve walking/standing tolerance by 25% for L>R knee. (notes has to sit after 30 minutes of standing) 3. Will demonstrate good quad strength during SLR. (IR: poor quality L worse than R with quad lag noted) 4. Increase hip abductor strength to 4+/5 L>R. 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 I HEP for self care management of L>R knee pain. 2. Strength 5/5 hip abductors. (IR: L 3/5, R 4/5). 3. Strength 5/5 hip extensors. IR: fair bridge B/L). 4. Pt will demonstrate good eccentric control for functional transfers. (IR: decreased control). 5. Pt will demonstrate self care/taping for management of her knee pain. (IR: not taping at home) Treatment Plan: Modalities to reduce pain, spasms and effusion. Manual therapy to restore motion and function. Therapeutic exercise to improve strength and flexibility. Neuromuscular re-education for posture and balance. Therapeutic activities to return to functional activities of daily living. Electronically signed by: Tyesha Harvey, PT, DPT Please sign and return to therapist. Thank you for your referral.
--- NOTE | 2025-03-12 09:40 | MHC.PT.DC ---
[facility] [place] Office [place] Office [place] Office [address] Lorena De Anda [address] [phone] F: [phone] F: [phone] F: [phone] F: [phone] Physical Therapy Discharge Report Diagnosis: M17.0 PT eval and treatment, Bilateral primary osteoarthritis of knee, primary localized osteoarthritis of knees, bilateral. Exercise strengthening program. Improve ROM. TENS unit signed by Dr. Alberto 12/12/24 Date of Surgery: Date of Evaluation: 01/29/25 Date of Discharge: 03/11/25 Treatments to Date: 10 Cancellations to Date: No Shows to Date: Discharge Status: Discharge Summary: 03/11/28: Enrique has attended 10 session of PT to date. She has met STG/LTG with PT at this time. She verbalizes some reduction in her L knee pain. She has improved in her L knee strength since start of care. She has been encouraged to perform AAROM knee ROM/ strength program a few days per week. We discussed the benefit of obtaining a stationary bike for home program. She will be seeing Dr. Alberto for a follow up on 03/13/25. 03/04/25: Improving LE strength and eccentric control. 02/28/25: Pt will decrease frequency to 1x/week. Pt improving strength of the L knee. 02/26/25: Positive advancement to [facility]. She will benefit from ongoing stabilization and hip ext/abd strength to improve gait mechanics. Adjusted and lowered cane one level as she was shrugging with cane with improved quality. 02/21/25: Improving strength with SLR. Advancing control with functional transfers. Pt encouraged to use std cane for ambulation weak proximal hip musculature is noted. Will advance hip and core strength in future sessions. 02/20/25: Enrique is getting strong in her L>R knee strength. AROM- 2 degree extension, encouraged AAROM passive knee extension for home. 02/14/25: Pt AROM knee extension -3 degrees extension. Improving strength. Reviewed stair negotiation encouraged ascending R LE, descending L LE first with use of rail. 02/11/25; Improving knee extension/strength L knee. -5 post manual therapy today. Pt now able to perform SLR into flexion on L LE. Discussed/educated re: avoidance of sleeping with towel roll behind L knee in effort to increase knee extension. Discussed with present for patient education. 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 02/06/25: Positive response to use of ROCKTAPE. Pt unable to perform SLR on L. Educated re: passive knee extension stretch with towel roll. Educated to hold from SLR for the L LE at this time due to inability to perform 01/31/25: Samer expressed positive response to knee taping. She was trialed and educated with self-application of ROCKTAPE for L>R knee. Good response to bike in the office, educated and encouraged to consider obtaining restorator for home use. Pt is a RHD 69 y/o female primary language MAORI (presents with spouse), referred to PT from rheumatology office, Dr. Alberto for treatment of , M17.0 PT eval and treatment, Bilateral primary osteoarthritis of knee, primary localized osteoarthritis of knees, bilateral. Exercise strengthening program. Improve ROM. TENS unit signed by Dr. Alberto 12/12/24. She exhibits L knee AROM 0 to 112, R knee 0- 110. She has poor SLR on the L and c/o ITB pain and left lateral hip pain sx as well. She is weak in proximal hip abd/core and will benefit from stabilization. She is unsteady upon standing and has poor static standing balance (unable to perform SLS). Pt with history of failed PT in the past, poor carryover of previous PT exercises, expresses L>R knee pain with limited tolerance for standing/walking due to sx. Pt will benefit from trial of PT 1-2x/week x 4 weeks to address impairments, implement HEP, and with goal of improving functional mobility tolerance. Post initial assessment she was trialed with ROCKTAPE application to L>R knee in effort to reduce anterior knee pain. Pt verbalized relief and positive response to application. She was given handout re: CORE ROCKTAPE education sheet for removal/goals/indications/education. She was also educated re: use of flexbar/rolling pin massage roller for HS ,ITB, and quadriceps. She was shown seated HS stretch with good outcomes. She will be started with gentle quad strengthening and trial of bike next session. She expressed history of L>R sided neck pain and asked if this was part of her treatment regimen. She was shown seated upper trap and levator scap stretches in addition to her knee activity. PMH significant for: Systemic hypertension due to high intracranial pressure Hypertension Primary localized osteoarthritis of knees, bilateral Cervicalgia Carpal tunnel syndrome Arthralgia of shoulder region Arthralgia of hand History of right cataract surgery. Electronically signed by: Tyesha Harvey, PT, DPT Please sign and return to therapist. Thank you for your referral.
== END 2025-03-12 09:41 | disposition home or self-care (01) ==
LOC: HO.PTS 13:54
PROVIDERS: Visit Provider Internal Medicine Rheumatology
DX: M17.0 Bilateral primary osteoarthritis of knee (principal)
CPT/HCPCS: 97110; 97140; 97161; 97535

== ENCOUNTER 2025-03-13 12:29 | Outpatient (AMB) | payer MEDICARE, MEDICAID, SELFPAY ==
[2025-03-13 12:44] VITALS: BP 130/70; PULSE 62; O2SAT 94
--- NOTE | 2025-03-13 12:44 | A.OFFVIS_ITS ---
Vital Signs 03/13/25 12:44 Height 5 ft 1 in BP 130/70 Blood Pressure Location Rt brachial Position Sitting Pulse 62 Pulse Source Pulse Oximeter Pulse Oximetry (%) 94 Oxygen Delivery Method Room Air Intake Visit Reasons: 3months Intake Note: Patient presents follow up Primary localized osteoarthritis of knees, bilateral. Accompanied by: Spouse Allergies No Known Allergies Allergy (Verified 03/13/25 12:44) HPI HPI 3months: Details: Cymbalta causes dry mouth. She took it initially for 2-1/2 months then had to hold it for about 4 days. Whenever dry mouth and dry throat gets his excessive she has to hold Cymbalta. It also caused constipation. Completed PT. Noncompliant with home exercise program. Pain is at 50% level in knees. She is experiencing pain in her left wrists that is tolerable with applying lidocaine patch. She has been using wrist braces at night intermittently. She takes Ibuprofen 400mg BID. No tylenol. She is experiencing neck pain that extends to the base of her skull. FORMERLY [facility] Medical History Systemic hypertension due to high intracranial pressure Hypertension Primary localized osteoarthritis of knees, bilateral Cervicalgia Carpal tunnel syndrome Arthralgia of shoulder region Arthralgia of hand Surgical History History of right cataract surgery Family History Father No problems noted. Physical Exam Vital Signs: Last Vital Signs Pulse 62 03/13/25 12:44 BP 130/70 03/13/25 12:44 Pulse Ox 94 03/13/25 12:44 Oxygen Delivery Method Room Air 03/13/25 12:44 Const Other: General: Comfortable CVS: RRR Respiratory: clear to auscultation bilaterally. Good respiratory effort Skin: No lesions seen MSK: Tender bilateral knees with hypertrophy present and crepitus. Bilateral knee flexion 110 degrees. No synovitis. Squaring of bilateral CMCs with synovitis of left CMC. 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 Normal range of motion of upper extremities. Tender to palpate trapezius. Good cervical range of motion. Assessment & Plan Assessment & Plan (1) Primary localized osteoarthritis of knees, bilateral: Comment: She has improved range of motion with 2nd PT course. Duloxetine caused dry mouth, dry throat and constipation. I will request brand Cymbalta. We discuss next steps to help control her knee pain. She reports that knee pain is at 50% , which is more tolerable. She does not want to have surgery at this time. We discussed considering geniculate nerve block. Rheumatology history: CSI b/1 04/2023, 07/2023, 07/2024, L 10/2023, R 11/2023. She had partial relief with cortisone injections to bilateral knees. Failed physical therapy, Tylenol and diclofenac gel. Failed Euflexxa 08/2024. Second course of PT improved range of motion in her knees. Code(s): M17.0 - Bilateral primary osteoarthritis of knee Category: Medical Plan: Creatinine ordered Brand PA Cymbalta 30 mg daily Try acetaminophen 650 mg 1-2 tablets every 8 hours prn pain Continue to use diclofenac gel 1% q.i.d. PRN pain Continue home exercise program. I recommended that she have a consistent exercise routine at home. Avoid oral NSAIDs due to history of CKD Physiatry referral for consideration of geniculate nerve block Return to clinic in 3 months (2) Rheumatoid arthritis: Comment: She does not have clinical findings of RA. Rheumatology history: New diagnosis of rheumatoid arthritis in [place] a month ago presenting with polyarthritis affecting wrist, hands, knees and feet. She was placed on methotrexate 7.5 mg once weekly, chloroquine and betamethasone 0.5 mg b.i.d. 07/2024 visit she does not have synovitis on exam likely related to betamethasone use and it being too soon on DMARD therapy for full effectiveness (1 month duration). [facility] [place] revealed negative rheumatoid factor, anti CCP antibody, hepatitis screen, elevated ESR 31 mm/hr normal CRP. In [place] on her anti CCP antibody was elevated low titre 32.5 (N<17 U/mL). [facility] ultrasound 11/02/2024 of bilateral 2nd MCPs did not reveal inflammatory arthritis. She has degenerative arthritis on imaging. Code(s): M06.9 - Rheumatoid arthritis, unspecified Category: Medical Qualifiers: Rheumatoid arthritis location: multiple sites Rheumatoid factor presence: unspecified presence Qualified Code(s): M06.9 - Rheumatoid arthritis, unspecified Plan: Monitor clinically (3) Trapezius strain: Code(s): S46.819A - Strain of other muscles, fascia and tendons at shoulder and upper arm level, unspecified arm, initial encounter Category: Medical Plan: Apply heat to affected area Try lidocaine patch applied to affected area She will call office in 2-3 weeks if pain does not improve. I will then add in PT with myofascial release Return to clinic in 3 months (4) Osteoarthritis of carpometacarpal (CMC) joint of left thumb: Comment: Intermittent bilateral CMC pain with swelling of left CMC. We discussed conservative management Code(s): M18.12 - Unilateral primary osteoarthritis of first carpometacarpal joint, left hand Category: Medical Plan: Custom bilateral CMC splints prescribed Continue apply diclofenac gel 1% applied to affected area every 4-6 hours as needed If no benefit with the above, consider OT referral if there is no benefit versus cortisone injection Return to clinic in 3 months or sooner if needed for cortisone injection (5) Bilateral carpal tunnel syndrome: Comment: Bilateral on nerve conduction study [employer] [employer]. Resolved with wearing cock-up wrist braces at night. Code(s): G56.03 - Carpal tunnel syndrome, bilateral upper limbs Category: Medical Plan: Monitor clinically Orders: Referrals Physiatry Referral M17.0 - Bilateral primary osteoarthritis of knee Medications: New arm brace (Wrist Brace) As directed. Custom CMC splints Dx: osteoarthritis CMC 2 ea 0RF Changed From duloxetine 30 mg PO DAILY 30 caps 11RF To duloxetine 30 mg PO DAILY 30 caps 11RF NS From diclofenac sodium 1% apply to single knee, ankle, foot; for foot includes sole/toes/top of foot 4 grams topical QID To diclofenac sodium 1% apply to affected to affected area every 4-6 hours PRN 4 grams topical QID 100 grams 5RF Coding Level of Care Code Est Pt Level 4 (09706) Complex EM visit Add On G2211 Diagnoses Primary localized osteoarthritis of knees, bilateral M17.0 Rheumatoid arthritis involving multiple sites, unspecified whether rheumatoid factor present M06.9 Rheumatoid arthritis location: multiple sites Rheumatoid factor presence: unspecified presence Trapezius strain S46.819A Osteoarthritis of carpometacarpal (CMC) joint of left thumb M18.12 Bilateral carpal tunnel syndrome G56.03
== END 2025-03-13 13:21 | disposition home or self-care (01) ==
LOC: HO.RHES 12:30
PROVIDERS: PCP Internal Medicine; Visit Provider Internal Medicine Rheumatology
DX: M17.0 Bilateral primary osteoarthritis of knee (principal); M06.9 Rheumatoid arthritis, unspecified; S46.819A Strain of other muscles, fascia and tendons at shoulder and upper arm level, unspecified arm, initial encounter; M18.12 Unilateral primary osteoarthritis of first carpometacarpal joint, left hand; G56.03 Carpal tunnel syndrome, bilateral upper limbs
CPT/HCPCS: 99214; G2211

== ENCOUNTER 2025-03-13 12:29 | Outpatient (REF) | payer MEDICARE, MEDICAID, SELFPAY ==
[2025-03-13 19:43] LABS: Estimated Glomerular Filt Rate 46
--- OUTSIDE RECORDS SUMMARY | 2025-03-14 01:21 | XMS_ITS | Data Portability ---
Author Organization [place] - [facility], Allergy Address [address] [address] Assessment Encounter Date Assessment Date Assessment LastModified [...] or continued observation based on her preferences. [email or web address] Not available 10/21/2023 11:19:49 11/17/2023 11/17/2023 Recommendations: [...] would like to proceed with left-sided amplification. [email or web address] Not available 11/17/2023 14:29:20 Plan of Treatment Reminders Order Date Submit Date Provider Last Modified By Organization Details Last Modified Time Details Appointments None recorded. Lab None recorded. Referral None recorded. Procedures None recorded. Surgeries None recorded. Imaging None recorded. Medication Orders ciprofloxac in 0.3 %-dexametha sone 0.1 % ear drops,suspe nsion 2023 024 [facility], [address] [place] [address], [address], 4 11:14:47 Patient TargetsNo targets recorded. Patient InstructionsNo instructions recorded. Reason for Referral None Reported. Results Created Date Observation Date Name Description Value Unit Range Abnormal Flag Note LastModifiedBy Organization Detail LastModifiedTime 11/21/19 24 audio gram No observ ation record ed. [email or web address] Not Available 10/24 09:22:22 Result Notes None recorded. Problems Name Problem SNOMED Code Status Onset Date Resolution Date Notes Provider Name and Address Organization Details Recorded Time Perforation of left tympanic membrane 5531982683470 103 Active 2023 AKIL NOBLE MD [address] [address], [place], [address], [facility] - [facility] 4 11:13:27 Otorrhea of left ear 1746817385983 108 Active 2023 AKIL NOBLE MD [address] [address], [place], [address], [place] - [facility] 4 11:13:37 Sensorineur al hearing loss 55531060 Active 2023 JAIME ANDRE [address] [address], [place], [address], [place] [facility] [place] 4 13:38:57 Mixed conductive AND sensorineur al hearing loss 98133014 Active 2023 JAIME ANDRE [address] [address], [place], [address], [place] [facility] [place] 4 13:41:49 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 Procedures Surgical History Date Name Laterality Status Provider Name and Address Organization Details Recorded Time Comp Audio with Tymps - 00998 & 73426 completed JAIME ANDRE 100 [facility],[address], [address], [facility] 11/17/2023 13:38:50 EAC debris removal with microscope completed AKIL NOBLE MD 100 [facility],[address], [address], [facility] - [facility] 10/21/2023 11:13:14 Imaging Results None recorded. Procedure [...] Updated DateTime 10/21/2023 160.02 cm Lulu Mathews [place] [facility] [place] 10/21/2023 11:02:59 Date Recorded Body height Body mass index (BMI) Body weight Provider Name and Address Organization Details Last Updated DateTime 11/17/2023 160.02 cm 31.9 kg/m2 30982.63 g Kong Blandones [place] - [facility] 11/17/2023 13:08:06 Social History None recorded. Functional Status None recorded. Mental Status None recorded. Family History Nothing Reported. Medical History No medical history recorded. Gynecological HistoryNo gynecological history recorded. Obstetrics History GPAL:G 0 P 0 0 0 0 Past Encounters Encounter ID Performer Location Encounter Start Date Encounter Closed Date Diagnosis/Indication Diagnosis SNOMED-CT Code Diagnosis ICD10 Code Diagnosis IMO Codes Diagnosis Note [id number] AKIL NOBLE MD [facility] [address] [address] 10/21/2023 09:52:23 10/21/2023 11:18:46 Perforation of left tympanic membrane 3521171045 844269 H72.92 Otorrhea of left ear 470 8342680 676547 H92.12 [id number] ENRIQUE EDMONDS PA-C [facility] [address] [address] 11/17/2023 12:33:54 11/17/2023 14:17:30 Otorrhea of left ear 4027255210 074784 H92.12 Perforatio n of left tympanic membrane 4681504312 236705 H72.02 Mixed cond uctive and sensorineural hearing loss of left ear 2049853574 9107 H90.A32 Sensorineu ral hearing loss in right ear 1319137840 9100 H90.A21 [id number] JAIME ANDRE [facility] [address] [address] 11/17/2023 13:38:05 11/22/2023 09:08:20 Sensorineural hearing loss 26127734 H90.A21 Mixed cond uctive AND sensorineural hearing loss 68147419 H90.A32 Audiologic al evaluation results: Right ear: [...] ID Guarantor Name 11/17/2023 1 [place]IC[place] B[place]: [employer] Samer Madrigal [id number] Samer Madrigal 12/13/2023 2 [place] [facility] Samer Madrigal [id number] Samer Madrigal Notes Date Note Type Note Provider Name and Address Organization Details Recorded Time 10/21/2023 text/html 68-year-old female who comes in today for evaluation of the left ear. 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 She has noticed long-term hearing loss as a result. She began noticing left-sided ear pain and otorrhea a few days ago. This has not been a recurring issue for her in the past AKIL NOBLE MD [address], [address], [facility] 10/21/2023 11:19:59 11/17/2023 text/html ROS as noted in the HPI 68-year-old female presents for follow-up of left ear infection. Exam at the previous visit noted 60% perforation with otorrhea on the left. She was started on Ciprodex. Denies otalgia and otorrhea. Continues to have difficulty hearing. AKIL NOBLE MD 100 [facility],[address], [address], [facility] 11/17/2023 17:02:51 11/17/2023 text/html Audiological Evaluation HPIReported by PatientHearing LossFor hearing loss perceived, patient reportshearing loss in both ears (left ear worse)(perf, as.). JAIME ANDRE 100 [facility],[address] [address], [place], [address], [facility] - [facility] 11/17/2023 13:45:27 OBGyn Episode No OBEpisode recorded.
== END 2025-03-13 12:30 | disposition home or self-care (01) ==
LOC: HO.HKASLDS 12:29
PROVIDERS: PCP Internal Medicine; Visit Provider Internal Medicine Rheumatology
DX: M17.0 Bilateral primary osteoarthritis of knee (principal); S46.812A Strain of other muscles, fascia and tendons at shoulder and upper arm level, left arm, initial encounter; M06.9 Rheumatoid arthritis, unspecified; M18.12 Unilateral primary osteoarthritis of first carpometacarpal joint, left hand; G56.03 Carpal tunnel syndrome, bilateral upper limbs
CPT/HCPCS: 36415; 82565; 99212